=== PATIENT | male | born 1965 | race Caucasian/White ===

== ENCOUNTER 2024-09-10 00:51 | Inpatient (IN) | payer BC, OTHER ==
[2024-09-10] VITALS (21 sets, daily range): BP systolic 113–171; BP diastolic 77–105; PULSE 49–110; RESP 12–20; TEMP 97.6–98.7; O2SAT 93–100
[~2024-09-10] VITALS: Ht 180.3 cm; Wt 87.6 kg
[~2024-09-10 00:51] MED LIST: ALBU108A5 INH; AZIT-43 PO; BUDE1AER4 IN; IPRA0.00 NEB
[2024-09-10 01:33] LABS: Alanine Aminotransferase 33 U/L (7-40); Albumin 4.5 g/dL (3.2-4.8); Alkaline Phosphatase 81 U/L (46-116); Anion Gap 7 (5-15); BUN/Creatinine Ratio 14.2 (10.0-20.0); Bilirubin, Total 0.9 mg/dL (0.2-1.0); Blood Urea Nitrogen 17 mg/dL (9-23); Calcium 9.5 mg/dL (8.7-10.4); Carbon Dioxide 28 mmol/L (20-31); Chloride 106 mmol/L (98-107); Sodium 141 mmol/L (136-145)
[2024-09-10 01:34] LABS: Total Protein 6.6 g/dL (5.7-8.2)
[2024-09-10 01:38] LABS: Aspartate Aminotransferase 188 U/L (13-40); Glucose 113 mg/dL (74-106)
--- NOTE | 2024-09-10 01:39 | ED.PDOC ---
HPI Comments 59-year-old male who came to ER via EMS for chest pains. Per EMS, patient comes from [facility], where in the patient checked in than initial complaint of abdominal pain with nausea and vomiting. Abdominal pain will radiate to his chest area, causing him chest pains and shortness of breath. Diagnostics done at [facility] showed progressively increasing troponin levels of the patient to be brought to this ER for further evaluation and management. Patient's troponin increased from 0.07 2.6. EKG shows sinus bradycardia with PVCs. Chest x-ray was negative. He did have an elevated white blood cell count of 14.8. He was saturating 96% at room air. Case was discussed with Edgar Lagos at [facility]. Patient received aspirin, morphine, was started on a heparin and heparin drip prior to arrival. Chief Complaint: Chest Pain Time Seen by MD: 01:34 Reviewed Notes: Nurses Notes Allergies: Coded Allergies: NO KNOWN ALLERGIES (Unverified , 09/10/24) Information Source: Patient Mode of Arrival: Ambulatory Severity: Moderate Timing: Days Duration: Intermittent Prehospital treatment: None Location: Substernal Radiation: Abdomen Quality: Pressure Onset: At Rest, With Light Exertion Cardiac Risk Factors: HTN, Diabetes Vital Signs Vital Signs Date Time Temp Pulse Resp B/P (MAP) Pulse Ox O2 Delivery O2 Flow Rate FiO2 09/10/24 01:39 59 09/10/24 00:51 98.1 18 152/90 (110) 96 Physical Exam General: Awake, alert and oriented. No acute distress. Skin: Skin in warm, dry and intact. Appropriate color for ethnicity. Nailbeds pink with no cyanosis. HEENT: The head is normocephalic and atraumatic. Conjunctivae are clear without exudates or hemorrhage. Sclera is non-icteric. EOM are intact. No signs of nystagmus. Eyelids are normal in appearance without swelling or lesions. Oral mucosa is pink and moist Neck: The neck is supple with normal range of motion. No JVD. Cardiac: Heart rate and rhythm are normal. No murmurs, gallops, or rubs are auscultated. Respiratory: No signs of respiratory distress. Lung sounds are clear in all lob es bilaterally without rales, ronchi, or wheezes. Abdominal: Abdomen is soft, non-tender without distention. Bowel sounds are p resent and normoactive in all four quadrants. Extremities: Upper and lower extremities are atraumatic in appearance without de formity or edema. Neurological: The patient is awake, alert and oriented to person, place, and time with normal speech. Speech is clear. There is no facial asymmetry. Psychiatric: Appropriate mood and affect. Good judgement and insight. No visual or auditory hallucinations. Review of Systems: REVIEW OF SYSTEMS: No fever, no chills, or fatigue HEENT: No sore throat, no earache, no congestion, no neck pain. Cardiac: Positive chest pain. No palpitations. Lungs: No shortness of breath, no cough. GI: Positive nausea, positive vomiting, no diarrhea, no constipation, no abdominal pain : No dysuria, frequency, or urgency. No hematuria. Musculoskeletal: No joint pain , no joint swelling, no extremity edema. Skin: No rash, no itching. Neuro: No headache, no dizziness, no weakness Past Medical History PAST MEDICAL HISTORY: COPD Surgical History (Other): Colon surgery Family History Family History: Reviewed,noncontributory to illness Social History Smoker: Non-Smoker Alcohol: Denies ETOH Use Drugs: Denies Drug Use Lives In: Home EKG EKG : Pulse Rate (adult): 59 Cardiac Rhythm: NSR Comments no STEMI Was a procedure done? Was a procedure done?: No CP Differential Dx Differential Diagnosis: Angina, Anxiety / Panic Attack Differential Diagnosis: Angina, Aortic dissection, Chest Wall Pain, Costochondritis, Esophageal reflux/spasm, Gastritis, Myocardial Infarction, Pericarditis, Pneumonia, Other X-Ray, Labs, Meds, VS Vital Signs Date Time Temp Pulse Resp B/P (MAP) Pulse Ox O2 Delivery O2 Flow Rate FiO2 09/10/24 01:39 59 09/10/24 00:51 59 09/10/24 00:51 98.1 60 18 152/90 (110) 96 Lab Test 09/10/24 01:45 09/10/24 01:04 Range/Units Urine Color Light-yellow Yellow Urine Clarity Clear Clear Urine pH 7.0 5.0-9.0 Urine Specific [place] 1.009 1.001-1.035 Urine Protein Negative Negative Urine Ketones Trace Negative Urine Blood Trace H Negative /uL Urine Nitrite Negative Negative Urine Bilirubin Negative Negative Urine Urobilinogen Normal Negative mg/dL Urine Leukocyte Esterase Negative Negative /uL Urine RBC 1 0 - 3 /hpf Urine WBC <1 0 - 3 /hpf Urine Squamous Epithelial Cells None seen <5 /hpf Urine Bacteria None seen None Seen /hpf Urine Glucose Normal Normal mg/dL Prothrombin Time 10.9 9.3-11.8 sec Prothrombin Time INR 1.01 0.9-1.15 Sodium Level 141 136-145 mmol/L Potassium Level 4.0 3.5-5.1 mmol/L Chloride Level 106 98-107 mmol/L Carbon Dioxide Level 28 20-31 mmol/L Anion Gap 7 5-15 Blood Urea Nitrogen 17 9-23 mg/dL Creatinine 1.20 0.700-1.30 mg/dL Glomerular Filtration Rate Calc 70 >90 mL/min BUN/Creatinine Ratio 14.2 10.0-20.0 Serum Glucose 113 H 74-106 mg/dL Calcium Level 9.5 8.7-10.4 mg/dL Total Bilirubin 0.9 0.2-1.0 mg/dL Aspartate Amino Transferase (AST) 188 H 13-40 U/L Alanine Aminotransferase (ALT) 33 7-40 U/L Alkaline Phosphatase 81 46-116 U/L Troponin I High Sensitivity > 37190 *H </=54 ng/L Total Protein 6.6 5.7-8.2 g/dL Albumin 4.5 3.2-4.8 g/dL Time of 1ST Reevaluation: 01:30 Reevaluation 1ST: Unchanged Patient Education/Counseling: Diagnosis, Treatment Family Education/Counseling: No Family Present Departure 1 Departure Time of Disposition: 03:36 Impression: Primary Impression: NSTEMI (non-ST elevated myocardial infarction) Additional Impression: Chest pain Disposition: ADMITTED INPATIENT Condition: Stable Comments Extensive evaluation was performed in attempt to identify or rule out: (See differential diagnosis section) The following tests were ordered, and results were reviewed by me: (See diagnostic results section) The following test were independently interpreted by me: EKG, chest x-ray-no acute disease I reviewed and agreed with the following test results read by other providers: Chest x-ray I reviewed the following notes from the pt's past medical encounters: Hospitalization at [facility] Additional information was gathered from interviewing the following independent historians: EMS, PA at [facility] caring for patient Discussion of management or test interpretation with external physician/other qualified health skin care specialist: N/APA at [facility] caring for patient Addressed an acute or chronic illness that poses a threat to life or bodily function: Acute coronary syndrome Decision regarding hospitalization or escalation of hospital level of care: Risk and benefits of admission for further treatment of patient's condition was considered. Due to patient's current clinical condition, high risk of decline and poor outcome if discharged and need for further inpatient management and monitoring, patient will be admitted to the hospital. Critical Care Note Critical Care Time?: Yes (35 min-critical care time only) Critical care comment: Total critical care time: Approximately 35 minutes Due to a high probability of clinically significant, life threatening deterioration, the patient required my highest level of preparedness to intervene emergently and I personally spent this critical care time directly and personally managing the patient. This critical care time included obtaining a history; examining the patient; pulse oximetry; ordering and review of studies; arranging urgent treatment with development of a management plan; evaluation of patient's response to treatment; frequent reassessment; and, discussions with other providers. This critical care time was performed to assess and manage the high probability of imminent, life-threatening deterioration that could result in multi-organ failure. It was exclusive of separately billable procedures and treating other patients and teaching time. Please see my other sections and the rest of the note for further information on patient assessment and treatment. Stability Stability form required: No Heart Score Heart Score: Heart Score Response (Comments) Value History Moderate Suspicious 1 EKG Repolarization Disturb 1 Age 45-64 1 Risk Factors 1 or 2 risk factors 1 Troponin >3 x's Normal limit 2 Total 6 I personally scribed for ROGERS CARPIO MD ([email or web address]) on 09/10/24 at 01:39. Electronically submitted by Mahesh Humphreys ([email or web address]). I personally scribed for ROGERS CARPIO MD ([email or web address]) on 09/10/24 at 02:18. Electronically submitted by Mahesh Humphreys ([email or web address]). ROGERS CARPIO MD Sep 10, 2024 01:39
--- NOTE | 2024-09-10 01:41 | DVH ---
EXAM: XY CHEST XRAY 1 VIEW CLINICAL HISTORY: NSTEMI TECHNIQUE: Single AP view of the chest WID: COMPARISON: None FINDINGS: Lines and tubes: None Chest: The heart size and pulmonary vasculature is within normal limits. No pleural effusion, pneumothorax, or consolidation. Linear left basilar atelectasis or scarring. The osseous structures are grossly intact. IMPRESSION: No acute cardiopulmonary abnormality. Linear left basilar atelectasis or scarring
[2024-09-10 01:43] LABS: INR 1.01 (0.9-1.15); Prothrombin Time 10.9 sec (9.3-11.8)
[2024-09-10 02:18] LABS: Urine Bacteria None Seen /hpf (None Seen)
[2024-09-10 02:24] LABS: Urine Blood TRACE /uL (Negative); Urine Clarity Clear (Clear); Urine Color Light-Yellow (Yellow); Urine Protein, UAD Negative (Negative); Urine Specific Gravity 1.009 (1.001-1.035); Urine Urobilinogen Normal (Negative); Urine WBC <1 /hpf (0 - 3)
[2024-09-10] MEDS ORDERED: MORPHINE SULFATE INJ 2 MG/ml SYRG IV PRN (02:30)
[2024-09-10] MEDS ORDERED: NITROGLYCERIN 0.4 MG SL TAB SL PRN (02:30)
[2024-09-10] MEDS: HEPARIN DRIP/D5W 100UNITS/ML 250 ML IV SCH (03:00)
[2024-09-10] MEDS: ATORVASTATIN 20 MG TAB PO ONE (03:10)
[2024-09-10] MEDS: ASPirin 325 MG TAB PO ONE (03:10)
[2024-09-10] MEDS: HEPARIN SODIUM (PORCINE) 5000 UNITS/ML 1ML VIAL IV ONE (03:13)
[2024-09-10] MEDS: SODIUM CHLORIDE 0.9% 1,000 ML IV SCH (03:26)
[2024-09-10 03:52] LABS: Basophils # (auto) 0.1 10 ^3/uL (0-0.2); Basophils % (auto) 0.7 % (0.0-2.0); Eosinophils # (auto) 0 10 ^3/uL (0-0.8); Eosinophils % (auto) 0.3 % (0.0-7.0); Hematocrit 48.9 % (41.0-53.0); Hemoglobin 16.9 g/dL (13.5-17.5); Lymphocytes # (auto) 1.9 10 ^3/uL (0.4-5.4); Lymphocytes % (auto) 16.8 % (10.0-50.0); Mean Corpuscular Hemoglobin 33.3 pg (28.0-32.0); Mean Corpuscular Hgb Conc. 34.6 g/dL (32.0-36.0); Mean Corpuscular Volume 96.1 fL (80.0-100.0); Monocytes # (auto) 1.5 10 ^3/uL (0-1.3); Monocytes % (auto) 12.7 % (0.0-12.0); Neutrophils % (auto) 69.5 % (37.0-80.0); Platelet Count (auto) 263 10^3/uL (140-450); Red Blood Cells 5.09 10^6/uL (4.5-5.90); Red Cell Distribution Width 12.4 % (11.8-14.3); White Blood Cell 11.5 10^3/uL (4.4-10.8)
[2024-09-10 04:05] LABS: INR 1.04 (0.9-1.15)
--- NOTE | 2024-09-10 04:07 | DVHHPRES ---
History of Present Illness Resident Creating Document: KATIA JARA RESIDENT Reason for Visit: chest pain History of Present Illness 59-year-old male patient with past medical history of COPD, significant smoking history (1.5 packs per day for 40 years, quit 2 years ago), and prior colon resection for 2 masses, presented with chest pain localized in the middle of the chest pressure-like, constant, sometimes radiating to the right armpit and associated with shortness breaths who was transferred to the emergency department from [facility] for further evaluation of chest pain. The patient's symptoms began on Friday with severe nausea and vomiting, prompting evaluation at [facility]. At that time the patient was discharged home . Yesterday the patient developed chest pain described as pressure-like, initially localized to the chest but sometimes radiating to the right armpit, along with worsening shortness of breath. He returned to [facility] where a troponin trending was elevated, for which the patient was transferred to [facility] where we found the [place] troponins [place] more [place] [id number]. He denies prior history of coronary artery disease, myocardial infarction or prior cardiac procedures but attributes prior episodes of chest pain and dyspnea to his COPD. The patient's chest pain has improved since transfer, and he currently reports mild pressure-like discomfort localized to the center of the chest without radiation. He denies palpitation, lightheadedness, dizziness or syncope. His nausea and vomiting have resolved. The patient reports smoking marijuana occasionally but denies alcohol or other drug use. 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 His surgical history includes colon resection for 2 masses and hernia repair with a visible abdominal scar. EKG showed deep Q waves and age undetermined infarction in the posteroinferior leads, this morphology likely related with an ST progression as this event happened >24 hrs On arrival to [facility], other than the troponin elevation the AST was found to be elevated at 188. The patient is currently hemodynamically stable with normal vital signs and no signs of acute distress. Given the significant troponin elevation and EKG presentation Cardiology was consulted. The patient was started on medical therapy with aspirin 325 mg p.o, atorvastatin 80 mg and heparin drip. Patient will keep NPO today Past Medical History OPD, significant smoking history (1.5 packs per day for 40 years, quit 2 years ago), and prior colon resection for 2 masses Past Surgical History: Hernia Repair, Other Family History: None ALCOHOL: none Lives: with Family Domestic Violence: Neg Review of Systems Review of Systems Constitutional: No: Fever, Chills, Sweats, Weakness, Malaise, Other Eyes: No: Pain, Vision change, Conjunctivae inflammation, Eyelid inflammation, Other, Redness ENT: No: Ear pain, Ear discharge, Nose pain, Nose discharge, Nose congestion, Mouth pain, Mouth swelling, Throat pain, Throat swelling, Other Respiratory: No Wheezing, Hemoptysis, Pleuritic Pain, Sputum, Wheezing, Other Cardiovascular: mild Chest Pain no: Palpitations, Orthopnea, Paroxysmal Noc. Dyspnea, Edema, Lt Headedness, Other Gastrointestinal: No: Nausea, Vomiting, Abdominal Pain, Diarrhea, Constipation, Melena, Hematochezia, Other Musculoskeletal: No: other, neck pain, shoulder pain, arm pain, back pain, hand pain, leg pain, foot pain Neurological:; No: Weakness, Numbness, Incoordination, Change in speech, Confusion, Seizures Allergies: Coded Allergies: Penicillins (Verified Allergy, Unknown, 09/10/24) Medications Current Medications Medications Dose Ordered Sig/Severo Route Start Time Stop Time Status Last Admin Dose Admin Sodium Chloride 1,000 ml @ 60 mls/hr [id number] IV 09/10/24 02:30 09/10/24 03:26 60 MLS/HR Ondansetron HCl 4 mg Q4HP PRN IV 09/10/24 02:30 Acetaminophen 650 mg Q6HP PRN PO 09/10/24 02:30 Morphine Sulfate 2 mg Q4HPRN PRN IV 09/10/24 02:30 Nitroglycerin 0.4 mg Q5MINP PRN SL 09/10/24 02:30 Morphine Sulfate 2 mg Q30M PRN IV 09/10/24 02:30 Heparin Sodium/ Dextrose 250 ml @ 10 mls/hr Q24H IV 09/10/24 02:30 Aspirin 81 mg DAILY PO 09/10/24 10:00 Atorvastatin Calcium 40 mg DAILY PO 09/10/24 22:00 Pantoprazole Sodium 40 mg DAILY IV 09/10/24 10:00 Exam Vital Signs Vital Signs Date Time Temp Pulse Resp B/P (MAP) Pulse Ox O2 Delivery O2 Flow Rate FiO2 09/10/24 02:42 63 09/10/24 00:51 98.1 18 152/90 (110) 96 Exam Examination General Appearance: Alert, Oriented X3, Cooperative, No acute distress Respiratory: Slight wheezing, no crackles, Normal air movement Cardiovascular: Regular rate, Normal S1, Normal S2 Abdominal: Normal bowel sounds Extremities: No cyanosis, No edema, Normal pulses, No tenderness/swelling Skin: No rashes, No breakdown Neuro: Normal gait, Normal speech, Strength at 5/5 X4 ext, Normal tone, Sensation intact, Cranial nerves 3-12 NL, Reflexes 2+ Psych/Mental Status: Mental status NL, Mood NL Labs/Xrays Labs Test 09/10/24 03:27 09/10/24 02:35 09/10/24 01:45 09/10/24 01:04 Range/Units White Blood Count 11.5 H 4.4-10.8 10^3/uL Red Blood Count 5.09 4.5-5.90 10^6/uL Hemoglobin 16.9 13.5-17.5 g/dL Hematocrit 48.9 41.0-53.0 % Mean Corpuscular Volume 96.1 80.0-100.0 fL Mean Corpuscular Hemoglobin 33.3 H 28.0-32.0 pg Mean Corpuscular Hemoglobin Concent 34.6 32.0-36.0 g/dL Red Cell Distribution Width 12.4 11.8-14.3 % Platelet Count 263 140-450 10^3/uL Mean Platelet Volume 9.1 6.9-10.8 fL Neutrophils (%) (Auto) 69.5 37.0-80.0 % Lymphocytes (%) (Auto) 16.8 10.0-50.0 % Monocytes (%) (Auto) 12.7 H 0.0-12.0 % Eosinophils (%) (Auto) 0.3 0.0-7.0 % Basophils (%) (Auto) 0.7 0.0-2.0 % Neutrophils # (Auto) 8.0 1.6-8.6 10 ^3/uL Lymphocytes # (Auto) 1.9 0.4-5.4 10 ^3/uL Monocytes # (Auto) 1.5 H 0-1.3 10 ^3/uL Eosinophils # (Auto) 0 0-0.8 10 ^3/uL Basophils # (Auto) 0.1 0-0.2 10 ^3/uL Nucleated Red Blood Cells 0.0 % Urine Color Light-yellow Yellow Urine Clarity Clear Clear Urine pH 7.0 5.0-9.0 Urine Specific [place] 1.009 1.001-1.035 Urine Protein Negative Negative Urine Ketones Trace Negative Urine Blood Trace H Negative /uL Urine Nitrite Negative Negative Urine Bilirubin Negative Negative Urine Urobilinogen Normal Negative mg/dL Urine Leukocyte Esterase Negative Negative /uL Urine RBC 1 0 - 3 /hpf Urine WBC <1 0 - 3 /hpf Urine Squamous Epithelial Cells None seen <5 /hpf Urine Bacteria None seen None Seen /hpf Urine Glucose Normal Normal mg/dL Troponin I High Sensitivity > 37202 *H </=54 ng/L Assessment/Plan Assessment/Plan #Acute evolving myocardial infarction with Q waves -[place] [address], deep Q waves -Consider cardiac catheterization tomorrow morning -NPO -PT PTT -Aspirin 325 -Heparin drip -Atorvastatin 80 mg -Cardiology consult #Acute hypoxemic respiratory failure due to COPD exacerbation -Oxygen supplementation -medneb inh #Ischemic hepatitis? -Elevated AST 188 suggest hepatic injury, likely secondary to hypoperfusion related to acute ischemic events. #History of nicotine dependency 1-1/2 pack a day for 40 years, quit 2 years ago #History of post colon resection status #Drug abuse, marijuana use -smoking cessation counseling was provided # uncontrolled hypertension -monitor blood pressure Case discussed with Dr. Amezcua Goals of care discussed with the patient for 36 minutes Code status: Full code Plan discussed with: Patient My Orders Orders - KATIA JARA RESIDENT Procedure Category Date Status Time Admit ADMIT 09/10/24 Transmitted 02:19 Allergies SARABJIT 09/10/24 In Process 02:19 Code Status CODE 09/10/24 Transmitted 02:19 Sodium Chloride 0.9% PHA 09/10/24 In Process 02:30 Ondansetron Hcl PHA 09/10/24 In Process (Zofran) 02:30 Complete Blood Count LAB 09/10/24 In Process 04:00 Comprehensive LAB 09/10/24 In Process Metabolic Panel 04:00 Npo (Nothing By DIET 09/10/24 Transmitted Mouth) Diet Breakfast Echo 2d Mode Cardiac US 09/10/24 Logged DOP 02:19 Acetaminophen Tablet PHA 09/10/24 In Process (Tylenol Tablet) 02:30 Morphine Sulfate PHA 09/10/24 In Process Injection 02:30 Nitroglycerin PHA 09/10/24 In Process Sublingual (Ntrostat 02:30 Morphine Sulfate PHA 09/10/24 In Process Injection 02:30 Oxygen By Nasal RT 09/10/24 Transmitted Cannula 02:19 Stat Ekg For Chest [facility] 09/10/24 In Process Pain 02:19 Notify Md Of Changes [facility] 09/10/24 In Process From Base 02:19 Bronc Buster For [facility] 09/10/24 In Process 24 Hours 02:19 Emergency Dysrhythmia [facility] 09/10/24 In Process Protocol 02:19 Rhythm Strips Once [facility] 09/10/24 In Process Every Shift 02:19 Date of Service: Sep 10, 2024 Billing Provider: JASKARAN AMEZCUA MD Common Visit Codes: [id number] INP/OBS CARE (HIGH) KATIA JARA RESIDENT Sep 10, 2024 04:06 JASKARAN AMEZCUA MD Sep 10, 2024 19:28
[2024-09-10 04:10] LABS: Opiate Scree,Urine Neg (NEGATIVE)
[2024-09-10 04:12] LABS: Albumin 4.8 g/dL (3.2-4.8); Alkaline Phosphatase 86 U/L (46-116); Anion Gap 9 (5-15); BUN/Creatinine Ratio 12.8 (10.0-20.0); Blood Urea Nitrogen 16 mg/dL (9-23); Calcium 9.9 mg/dL (8.7-10.4); Carbon Dioxide 28 mmol/L (20-31); Chloride 105 mmol/L (98-107); Glucose 100 mg/dL (74-106); Potassium 4.1 mmol/L (3.5-5.1); Sodium 142 mmol/L (136-145)
[2024-09-10 04:14] LABS: Amphetamine Screen, Urine Neg (NEGATIVE); Barbiturate Scree,Urine Neg (NEGATIVE); Benzodiazephine Screen, Urine Neg (NEGATIVE); Cannabinoid Screen, Urine Pos (NEGATIVE); Cocaine Screen, Urine Neg (NEGATIVE); Phencyclidine Screen, Urine Neg (NEGATIVE)
[2024-09-10 04:23] LABS: Alanine Aminotransferase 44 U/L (7-40); Aspartate Aminotransferase 295 U/L (13-40)
[2024-09-10] MEDS: IPRATROPIUM BROM 0.5 MG/2.5ML INH SOL NEB SCH (06:01)
[2024-09-10] MEDS: ALBUTEROL SULF 2.5 MG/0.5ML(0.5%) NEB SOLN NEB PRN (06:02)
--- NOTE | 2024-09-10 06:50 | ECG ---
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
--- NOTE | 2024-09-10 07:53 | DVHINCON2 ---
Date Seen: Sep 10, 2024 Referring Physician MD Andrea Reason for Consultation NSTEMI History of Present Illness This is a 59-year-old man who presented to the emergency room from [facility] for higher level of care given trending troponin levels. The patient reports he presented to the aforementioned facility with complaints of epigastric pain and subsequent chest pain described as substernal, pressure- like, radiating to the left upper extremity, and associated with nausea and vomiting for two days. He underwent an initial 12 lead electrocardiogram revealing a sinus rhythm with ST segment depression to inferior leads with associated Q-waves as well as reciprocal changes to lateral wall. Low sensitivity troponin levels peaked at 2.09 ng/mL. At that time, he was medicated with ASA 324 mg p.o. x1, loaded on heparin 5,000 units IV, and placed on a heparin drip. Significant medical history includes hypertension, COPD, asthma, benign prostatic hyperplasia, nephrolithiasis, anxiety, heavy cannabinoid use, and a smoke history of 60 pack-years. Past Medical History Past medical history reviewed. No other significant than mentioned above. Past Surgical History Hernia repair Left colectomy Open reduction of pelvic bone with internal fixation Family History Family history reviewed. Paternal uncle from a massive myocardial infarction in his 40s y.o. Social History Denies the use of alcohol or tobacco use. Admits to heavy cannabinoid use. Quit tobacco use 1.5 years ago. Tobacco history equals 60 pack-years. Allergies: Coded Allergies: NO KNOWN ALLERGIES (Unverified , 09/10/24) Home Meds Home medications reviewed. Current Medications Current Medications Medications (Trade) Dose Ordered Sig/Severo Route PRN Reason Start Time Stop Time Status Last Admin Sodium Chloride 1,000 ml @ 60 mls/hr [id number] IV 09/10/24 02:30 09/10/24 03:26 Ondansetron HCl (Zofran) 4 mg Q4HP PRN IV NAUSEA / VOMITING 09/10/24 02:30 Acetaminophen (Tylenol Tablet) 650 mg Q6HP PRN PO PAIN SCALE 1-3 OR TEMP>100.4 09/10/24 02:30 Morphine Sulfate 2 mg Q4HPRN PRN IV SEVERE PAIN (7-10 PAIN SCALE) 09/10/24 02:30 Nitroglycerin (Ntrostat Sublingual) 0.4 mg Q5MINP PRN SL FOR CHEST PAIN 09/10/24 02:30 Morphine Sulfate 2 mg Q30M PRN IV FOR CHEST PAIN 09/10/24 02:30 Heparin Sodium/ Dextrose 250 ml @ 10 mls/hr Q24H IV 09/10/24 02:30 09/10/24 03:00 Aspirin 81 mg DAILY PO 09/10/24 10:00 Atorvastatin Calcium (Lipitor) 40 mg DAILY PO 09/10/24 22:00 Pantoprazole Sodium (Protonix) 40 mg DAILY IV 09/10/24 10:00 Albuterol (Ventolin Medneb) 2.5 mg Q6HWA PRN NEB SHORTNESS OF BREATH 09/10/24 05:15 09/10/24 06:02 Ipratropium [place] (Atrovent Medneb) 0.5 mg Q6HWA NEB 09/10/24 06:00 09/10/24 06:01 Review of Systems Constitutional: No symptom reported Ears, Nose, & Throat: No symptom reported Eyes: No symptom reported Neurological: No symptoms reported Pulmonary/Respiratory: No symptom reported Cardiovascular: Chest pain Gastrointestinal: Epigastric pain, N/V Genitourinary: No symptom reported Musculoskeletal: No symptom reported Skin: No symptom reported Psychiatric: No symptom reported Endocrine: No symptom reported Hemotologic/Lymphatic: No symptom reported Vital Signs Vital Signs Date Time Temp Pulse Resp B/P (MAP) Pulse Ox O2 Delivery O2 Flow Rate FiO2 09/10/24 07:43 65 09/10/24 06:50 12 98 Nasal Cannula* 2 28 09/10/24 06:13 98.1 152/90 98.1 Physical Exam General Appearance: Cooperative. Well developed. Well nourished. In no acute distress Head Exam: Normal inspection Neck Exam: Normal inspection. Non-tender. Normal alignment Pulmonary/Respiratory: Chest non-tender. Clear bilateral breath sounds Cardiovascular/Chest: Regular rate and rhythm. S1, S2. Sinus rhythm with evolved inferior wall NJ. No murmurs. No JVD. Peripheral Pulses: 2+ Radial (R). 2+ Radial (L). 2+ Pedal (R). 2+ Pedal (L) Abdominal Exam: Normal bowel sounds. Soft. Nontender. No hepatospenomegaly. No masses Ankle Exam: Negative ankle edema Lower extremities: Negative lower extremity edema Neuro/Mental Status: A&O x4. Coherent Thoughts/Psych: Normal thought pattern. Appropriate mood and affect. Good judgement and insight Appearance: In no acute distress Skin Exam: Normal inspection. Normal color. Warm. Dry Labs/Diagnostic Data Labs Test 09/10/24 03:27 09/10/24 02:35 09/10/24 01:45 Range/Units White Blood Count 11.5 H 4.4-10.8 10^3/uL Red Blood Count 5.09 4.5-5.90 10^6/uL Hemoglobin 16.9 13.5-17.5 g/dL Hematocrit 48.9 41.0-53.0 % Mean Corpuscular Volume 96.1 80.0-100.0 fL Mean Corpuscular Hemoglobin 33.3 H 28.0-32.0 pg Mean Corpuscular Hemoglobin Concent 34.6 32.0-36.0 g/dL Red Cell Distribution Width 12.4 11.8-14.3 % Platelet Count 263 140-450 10^3/uL Mean Platelet Volume 9.1 6.9-10.8 fL Neutrophils (%) (Auto) 69.5 37.0-80.0 % Lymphocytes (%) (Auto) 16.8 10.0-50.0 % Monocytes (%) (Auto) 12.7 H 0.0-12.0 % Eosinophils (%) (Auto) 0.3 0.0-7.0 % Basophils (%) (Auto) 0.7 0.0-2.0 % Neutrophils # (Auto) 8.0 1.6-8.6 10 ^3/uL Lymphocytes # (Auto) 1.9 0.4-5.4 10 ^3/uL Monocytes # (Auto) 1.5 H 0-1.3 10 ^3/uL Eosinophils # (Auto) 0 0-0.8 10 ^3/uL Basophils # (Auto) 0.1 0-0.2 10 ^3/uL Nucleated Red Blood Cells 0.0 % Prothrombin Time 11.0 9.3-11.8 sec Prothrombin Time INR 1.04 0.9-1.15 Activated Partial Thromboplast Time 26.0 24.5-34.5 SEC D-Dimer, Quantitative 0.32 0.0-0.49 mg/L FEU Sodium Level 142 136-145 mmol/L Potassium Level 4.1 3.5-5.1 mmol/L Chloride Level 105 98-107 mmol/L Carbon Dioxide Level 28 20-31 mmol/L Anion Gap 9 5-15 Blood Urea Nitrogen 16 9-23 mg/dL Creatinine 1.25 0.700-1.30 mg/dL Glomerular Filtration Rate Calc 66 >90 mL/min BUN/Creatinine Ratio 12.8 10.0-20.0 Serum Glucose 100 74-106 mg/dL Calcium Level 9.9 8.7-10.4 mg/dL Total Bilirubin 1.0 0.2-1.0 mg/dL Aspartate Amino Transferase (AST) 295 H 13-40 U/L Alanine Aminotransferase (ALT) 44 H 7-40 U/L Alkaline Phosphatase 86 46-116 U/L B-Type Natriuretic Peptide 290.40 0-100 pg/mL Total Protein 7.0 5.7-8.2 g/dL Albumin 4.8 3.2-4.8 g/dL Thyroid Stimulating Hormone (TSH) 0.77 0.55-4.78 uIU/mL Urine Opiates Screen Neg NEGATIVE Urine Fentanyl Screen Neg NEGATIVE Urine Barbiturates Screen Neg NEGATIVE Urine Phencyclidine Screen Neg NEGATIVE Urine Amphetamines Screen Neg NEGATIVE Urine Benzodiazepines Screen Neg NEGATIVE Urine Cocaine Screen Neg NEGATIVE Urine Cannabinoids Screen Pos NEGATIVE Urine Color Light-yellow Yellow Urine Clarity Clear Clear Urine pH 7.0 5.0-9.0 Urine Specific [place] 1.009 1.001-1.035 Urine Protein Negative Negative Urine Ketones Trace Negative Urine Blood Trace H Negative /uL Urine Nitrite Negative Negative Urine Bilirubin Negative Negative Urine Urobilinogen Normal Negative mg/dL Urine Leukocyte Esterase Negative Negative /uL Urine RBC 1 0 - 3 /hpf Urine WBC <1 0 - 3 /hpf Urine Squamous Epithelial Cells None seen <5 /hpf Urine Bacteria None seen None Seen /hpf Urine Glucose Normal Normal mg/dL Assessment Evolved inferior wall myocardial infarction Pertinent family history for CV disease Hypertension Dyslipidemia, newly diagnosed COPD with hx of tobacco use and 60 pack-years Cannabinoid use Plan/Recommendation (Dr. Jeffries) The patient with an evolved inferior wall myocardial infarction has been scheduled for an urgent/emergent cardiac catheterization and coronary angiogram at fist available. All risks and benefits of the procedure were discussed in detail and agrees to proceed with intervention. All questions answered. In the meantime, continue with a transthoracic echocardiogram to rule out structural heart disease. Continue heparin drip per pharmacy protocol, single antiplatelet therapy, and lipid lowering agent. Continue BP control with BB and ARB, up- titrate as necessary. Thank you for allowing us to participate in this patient's care. Please call if you have any questions or concerns. Critical care time 50 min. This medical document was created using an electronic medical record system with voice recognition software and computerized dictation system. Although this document has been carefully reviewed, there might still be some phonetic and typographical errors. Occasional wrong-word or ``sound-alike substitutions may have occurred due to the inherent limitations of voice recognition software. These areas are purely typographical due to imperfections of the software programs and do not reflect any compromise in the patient's medical care. Please read the chart carefully and recognize, using context, where these substitutions have occurred. Plan discussed with: Patient, Other Date of Service: Sep 10, 2024 Billing Provider: KEITH JEFFRIES MD Cardiology Common Codes: [id number]-[id number] CARE 30-74 MIN YANIRA TURK [facility] Sep 10, 2024 07:53
[2024-09-10] MEDS: IODIXANOL 320MG/ML 100ML BTL IV ONE (08:04)
[2024-09-10 08:15] LABS: Magnesium 2.1 mg/dL (1.6-2.6)
[2024-09-10] MEDS: ANGIOMAX 250 MG VIAL IV ONE (08:37)
[2024-09-10] MEDS: HEPARIN SODIUM (PORCINE) 5000 UNITS/ML 1ML VIAL ONE ×2 (08:37→09:18)
[2024-09-10] MEDS: MIDAZOLAM HCL 2MG/2ML 2ml VIAL (1mg/ml) ONE (08:38)
[2024-09-10] MEDS: VERAPAMIL 2.5MG/ML INJ 2ML VIAL IV ONE (08:38)
[2024-09-10] MEDS: SODIUM CHL 0.9% 0 ML ONE (08:38)
[2024-09-10] MEDS: LIDOCAINE 2%HCL (LOCAL ANESTH.) INJ 20ML MDV ONE (08:38)
[2024-09-10] MEDS: fentaNYL CITRATE 100 MCG/2 ML VL ONE (08:38)
[2024-09-10 09:01] LABS: Erythrocyte Sedimentation Rate 1 mm/hr (0-20)
--- NOTE | 2024-09-10 09:51 | DVHOP2 ---
Operative Report -Cardiology Report Details Date: 09/10/24 Preop Diagnosis: Non ST-elevation myocardial infarction. Postop Diagnosis: Non ST-elevation myocardial infarction secondary to subtotal occlusion of 1st obtuse marginal tight stenosis and 99%. Lesion was fixed with single drug-eluting stent it was3 x 18 [place] MELISSA with excellent final result. Surgeon: Moraima Camacho MD Anesthesiologist: Conscious sedation using25 mcg of fentanyl as well as a mg IV midazolam. These were given under the direct supervision of the primary principal embedded software engineer myself in the presence of the attending nurses. Patient was monitored for total of35 minutes without obvious complication. Anesthesia: Local Consent: The patient was informed of the risks and benefits of the procedure. These include but are not limited to complications of anesthesia, postoperative infection, incomplete relief of symptoms, recurrence of symptoms, damage to blood vessels, nerves and tendons, deep venous thrombosis, pulmonary embolism and possible need for repeat surgery in the future. Indications for Surgery: This is a 59-year-old man who presented to the emergency room from [facility] for higher level of care given trending troponin levels. The patient reports he presented to the aforementioned facility with complaints of epigastric pain and subsequent chest pain described as substernal, pressure- like, radiating to the left upper extremity, and associated with nausea and vomiting for two days. He underwent an initial 12 lead electrocardiogram revealing a sinus rhythm with ST segment depression to inferior leads with associated Q-waves as well as reciprocal changes to lateral wall. Low sensitivity troponin levels peaked at 2.09 ng/mL. At that time, he was medicated with ASA 324 mg p.o. x1, loaded on heparin 5,000 units IV, and placed on a heparin drip. Significant medical history includes hypertension, COPD, asthma, benign prostatic hyperplasia, nephrolithiasis, anxiety, heavy cannabinoid use, and a smoke history of 60 pack Name of Procedure Performed 1. Left heart catheterization with left ventricular end-diastolic pressure measurement. 2. Selective right and left coronary angiography utilizing right transradial approach. 3. Primary PCI to culprit mid obtuse marginal branch stenosis and 99%. Treated with single drug-eluting stent 3 x 20 [place] MELISSA. 4. Conscious sedation using25 mcg of fentanyl as well as a mg IV midazolam. Procedure Details Procedure Details: Procedure note and vascular access: After informed consent was obtained, risks, benefits, complications, and alternatives were discussed in detail with the patient who agrees to have the procedure done. At the beginning of the procedure, the right wrist in the right coronary artery were prepped and draped in the regular sterile fashion. Patient was brought into the chemical lab supervisor where he received conscious sedation 25 mcg of fentanyl as well as a mg of midazolam. He then received a total of2 cc of 1% xylocaine locally to the right wrist area before a six Danish sheath was placed using modified Seldinger technique. A cocktail of 2.5 mg of verapamil as well as 100 mcg of nitroglycerin were given intra-arterial to prevent vasospasm. Given that the patient was on IV heparin we continue IV heparin during the procedure. An ACT was done multiple times to check blood clotting time. Findings were as follows: 1. Left heart catheterization with left ventricular end-diastolic pressure measurement: With the help of a tiger five Danish catheter as well as a J-tip wire we were able to cross the aortic valve and measured left ventricular end-diastolic pressure which was marginally elevated at 13 mm of mercury. There was no gradient across the aortic valve on the pullback. 2. Selective right and left coronary angiography utilizing right transradial approach: 1. The right coronary artery comes off the right coronary cusp it is a large dominant system it has mild irregularity but no discrete stenosis was noted. It bifurcates distally into large posterior descending artery as well as large posterolateral branches without significant atherosclerotic plaquing. 2. The left main comes off the left coronary cusp it is a large widely patent vessel it divides up into an LAD and left circumflex vessel. 3. The left anterior descending artery is a large vessel with two large diagonal branches. Has mild irregularity at 30% in the proximal to mid segment. No significant stenosis was noted. The LAD has transapical course. 4. The left circumflex vessel is medium-sized vessel it gives rise to large obtuse marginal branch, in the mid segment of the 1st obtuse marginal branches that is tight subtotal occlusion at 99%. It is the culprit vessel the patient's presentation. 3. Primary angioplasty with single drug-eluting stent to the mid obtuse marginal branch: [place] five [place] catheterization diagnostic catheter was exchanged for an XB 3.5 guiding catheter. A C-arm blue wire was used to traverse the lesion. After crossing of the lesion it was pre-dilated using a two 0 x 12 balloon and then was stented using3 x 20 [place] MELISSA with excellent final result all the way up to a 14 atmospheric pressure. The patient has ANNI two flow at the begi nning of the case and a indent up with ANNI three flow after stent was placed. Antiplatelet and anticoagulation during the procedure: Patient received IV heparin with the ACT mounting to 250, the dose was adjusted for his weight is receiving 100 units/kg body weight. He also received loading dose of 300 of Plavix as with a at 162 of baby aspirin. Impression and plan: 1. High-risk non ST-elevation myocardial infarction with dynamic EKG changes and high troponin secondary to a culprit mid obtuse marginal branch stenosis. 2. Successful PCI to the mid obtuse marginal branch using single drug-eluting stent. 3. Patient would need to be on dual antiplatelet therapy for minimum of12 months. And thereafter he would need a single antiplatelet indefinitely. He would need to undergo complete smoking cessation and risk factor modification. 4. Patient would need to be on high-dose statin to achieve LDL target less than 50 mg/dL. He would need an echocardiogram to assess left ventricular systolic function and proceed with goal-directed therapy as indicated. Condition Good CS Clinical Frailty Scale [facility] Clinical Frailty Scale: Very Fit Stress Test Stress Test Performed: No Dominance Dominance: Right ANNI ANNI Flow: Post- Intervention (ANNI-3), Pre-Intervention (ANNI-2) Lesion Lesion Complexity: High/C Residual Stenosis post procedu: 0% Disposition MORAIMA CAMACHO MD Sep 10, 2024 09:51
[2024-09-10] MEDS: CLOPIDOGREL BISULFATE 75 MG TAB ONE (09:58)
[2024-09-10] MEDS: ASPirin 81 mg TAB ONE (09:58)
[2024-09-10] MEDS: ASPirin 81 mg TAB PO SCH (10:00)
[2024-09-10] MEDS ORDERED: CITA-77 PO (11:48)
[2024-09-10] MEDS ORDERED: LOSA-535 PO (11:48)
[2024-09-10] MEDS ORDERED: PROP60CA34 PO (11:48)
[2024-09-10] MEDS ORDERED: TAMS1CAP25 PO (11:48)
[2024-09-10] MEDS: PANTOPRAZOLE 40 MG/10 ML VIAL INJ IV SCH (12:56)
[2024-09-10] MEDS: LOSARTAN POTASSIUM 25 MG TAB PO SCH (12:57)
[2024-09-10] MEDS: METOPROLOL SUCCINATE XL 50 MG TAB PO SCH (12:59)
[2024-09-10] MEDS: hydrALAZINE HCL 20 MG/ML VL IV PRN (14:05)
[2024-09-10] MEDS ORDERED: PROP120C42 PO (14:09)
[2024-09-10] MEDS: ONDANSETRON HCL 4 MG/2 ML VIAL IV PRN (15:13)
--- NOTE | 2024-09-10 15:41 | DVHPNRES ---
Progress Note Date Seen: Sep 10, 2024 Resident Creating Document: RAFAEL ARTHUR RESIDENT Medical Necessity Reason Pt with a Central, PICC or Fol: No Subjective Review of Systems KEANU TOMPKINS Sully is a 59-year-old male with a PMH of HTN, COPD, asthma, BPH, nephrolithiasis, anxiety transferred from [facility] for the evaluation of elevated troponin levels. Patient reported he initially presented to the [facility] with the chief complaints of epigastric pain, and chest pain substernal, pressure-like, radiating to the left upper extremity, and associated with nausea, diarrhea and vomiting for two days. Per patient, reported he initially got these symptoms on Friday and that it pain management and again due to lack of improvement in his symptoms he again visited hospital, did lab test which showed elevated troponins, advised him for higher level of care. On my assessment patient denies fever, diaphoresis, shortness of breath, abdominal pain, headache, fever, chills and other acute associated symptoms. PMH: PSH: Hernia repair, left cholecystectomy, open reduction and internal fixation pelvic bone Family history: Reviewed, a 0 bilateral ankle of massive NC in his 40s Social history: Lives with family. Patient uses marijuana but denies alcohol and tobacco abuse. Former smoker with 60 pack years. Allergies: No known allergies Patient seen and examined at the bedside. Due to elevated troponins x3 and EKG changes which showed depression to inferior leads with associated Q-waves as well as reciprocal changes to lateral wall so,consumer experience consultant evaluated the patient and took him to the collaborating supervising physician, performed left heart catheterization with primary angioplasty with MELISSA in margin branch, initiated DAPT times and advised to undergo complete smoking cessation and risk factor modification. and started on high-dose statins. Patient tolerated the procedure well. Monitoring Patient reports: No new complaints Objective vital signs Vital Sign Date Time Temp Pulse Resp B/P (MAP) Pulse Ox O2 Delivery O2 Flow Rate FiO2 09/10/24 14:45 98.7 96 18 169/100 (123) 96 98.7 09/10/24 07:40 Room Air* 0 21 Total Intake and Output 09/09/24 09/09/24 09/10/24 15:00 23:00 07:00 Intake Total 120 ml Balance 120 ml medications Current Medications Medications Dose Ordered Sig/Severo Route Start Time Stop Time Status Last Admin Dose Admin Sodium Chloride 1,000 ml @ 60 mls/hr [id number] IV 09/10/24 02:30 09/10/24 03:26 60 MLS/HR Ondansetron HCl 4 mg Q4HP PRN IV 09/10/24 02:30 09/10/24 15:13 4 MG Acetaminophen 650 mg Q6HP PRN PO 09/10/24 02:30 Morphine Sulfate 2 mg Q4HPRN PRN IV 09/10/24 02:30 Nitroglycerin 0.4 mg Q5MINP PRN SL 09/10/24 02:30 Morphine Sulfate 2 mg Q30M PRN IV 09/10/24 02:30 Aspirin 81 mg DAILY PO 09/10/24 10:00 Atorvastatin Calcium 40 mg DAILY PO 09/10/24 22:00 Pantoprazole Sodium 40 mg DAILY IV 09/10/24 10:00 09/10/24 12:56 40 MG Albuterol 2.5 mg Q6HWA PRN NEB 09/10/24 05:15 09/10/24 06:02 2.5 MG Ipratropium [place] 0.5 mg Q6HWA NEB 09/10/24 06:00 09/10/24 06:01 0.5 MG Metoprolol Succinate 25 mg DAILY PO 09/10/24 10:00 09/10/24 12:59 25 MG Losartan Potassium 25 mg DAILY PO 09/10/24 10:00 09/10/24 12:57 25 MG Hydralazine HCl 10 mg Q6HP PRN IV 09/10/24 09:15 09/10/24 14:05 10 MG Clopidogrel Bisulfate 75 mg DAILY PO 09/11/24 10:00 Examination Pt is lying on bed General Appearance: Alert, Oriented X3, Cooperative, Not in acute distress HEENT: Atraumatic, Mucous membranes moist/pink Respiratory: Clear to auscultation, Normal air movement, No added sounds Cardiovascular: Regular rate, Normal S1, Normal S2, No murmurs Abdominal: Active bowel sounds, Soft, no distention, no tenderness Extremities: No edema, Normal pulses, No tenderness/swelling Skin: No Significant rash, except past surgical scars Neuro: Normal speech, sensorimotor deficits none Psych/Mental Status: Mental status NL, Mood NL Nurse was there as sharperone during examination laboratory and microbiology Laboratory Tests 09/10/24 03:27 Test 09/10/24 03:27 Range/Units Serum Glucose 100 74-106 mg/dL Labs and/or images reviewed: Labs reviewed by me, Image(s) reviewed by me Problem List/Assessment/Plan Problem List/Assessment/Plan # Evolved inferior wall myocardial infarction - elevated troponins x3 - EKG changes which showed depression to inferior leads with associated Q-waves as well as reciprocal changes to lateral wall - consumer experience consultant evaluated the patient and performed PCI to the mid obtuse marginal branch using single drug-eluting stent - initiated DAPT with aspirin and Plavix along with high-dose statin at risk factor modification - pending echocardiogram # Hypertension - continuously monitored - resumed home meds # Dyslipidemia - counseled lifestyle modifications including diet and exercise - started on high-dose statins # COPD not in exacerbation - on breathing treatments #Cannabinoid abuse disorder - counseled regarding cessation for more than 17 minutes DAPT Protonix Cardiac diet Reconciled home meds Goals of care discussed with the patient for more than 27 minutes: Full code status Case management discussed with Dr. Jeronimo, patient and nurse Plan discussed with: Patient Date of Service: Sep 10, 2024 Billing Provider: JOSE JERONIMO MD Common Visit Codes: [id number] INP/OBS CARE(HIGH) Secondary Visit Codes: [id number] CARE PLAN 30 MINUTES RAFAEL ARTHUR RESIDENT Sep 10, 2024 15:41 JOSE JERONIMO MD Sep 11, 2024 21:10
[2024-09-10 15:52] LABS: INR 1.05 (0.9-1.15); Partial Thromboplastin Time 27.3 SEC (24.5-34.5); Prothrombin Time 11.1 sec (9.3-11.8)
--- NOTE | 2024-09-10 16:25 | DVHSR ---
APPROVED REPORT EXAM: Two-dimensional and M-mode echocardiogram with Doppler and color Doppler. Blood Pressure: 152/90 mmHg INDICATION NSTEMI RISK FACTORS Height: 5'11, Weight: 194 DIMENSIONS LVDd5.0 (3.8-5.7cm)LA (2D)4.1 (1.9-4.0cm)Aortic Root4.0 (2.0-3.7cm) LVDs3.6 (2.5-4.0cm)LA (MM) (1.9-4.0cm)Aortic Cusp Exc2.1 (1.5-2.0cm) EF (%) 55.0 (55-70%)Rt. Atrium4.4 (1.9-4.0cm)Asc. Aorta4.1 cm IVSd1.0 (0.7-1.1cm)RV (D) (1.8-2.4cm) PWd1.2 (0.7-1.1cm) Mitral Valve MitralMitral Stenosis E wave0.97m/sMV Mean GR.mmHg A wave0.53m/sMV Peak GR.71mmHg E/A ratio1.82D MVAcm2 DECEL [id number] 1/2 [place] Aortic Valve Aortic ValveAortic Stenosis V11.25m/Anthony Mean GR.4mmHg V21.39m/Anthony Peak GR.8mmHg LVOT Diameter2.5 (1.8-2.4cm)Doppler AVA4.41cm2 Pulmonic Valve V20.89m/s Tricuspid Valve TR Velocity2.53m/s [id number] Conclusion Normal left ventricular size and dimension. Normal left ventricular systolic function estimated ejec tion fraction 55%. There is a grade 1 diastolic dysfunction. Normal right ventricular size and dimension. Normal right ventricular systolic function. Slightly i ncreased right ventricular systolic [id number] mm of mercury Normal biatrial size and dimension. Normal aortic valve structure and function. Normal mitral valve structure and function. Normal tricuspid valve structure and function. The pulmonary valve is grossly normal. No pericardial effusion.
[2024-09-10] MEDS: PANTOPRAZOLE 40 MG/10 ML VIAL INJ IV ONE (16:56)
[2024-09-10] MEDS: ACETAMINOPHEN 325 MG TAB PO PRN (18:17)
[2024-09-10] MEDS: MORPHINE SULFATE INJ 2 MG/ml SYRG IV PRN (21:48)
[2024-09-10] MEDS: ATORVASTATIN 20 MG TAB PO SCH (21:56)
[2024-09-10] MEDS ORDERED: PROPRANOLOL HCL 20 MG TAB PO SCH (22:00)
[2024-09-10] MEDS: METOCLOPRAMIDE HCL 5MG/ml INJ 2ml VIAL IV ONE (22:57)
[2024-09-10] MEDS: ONDANSETRON HCL 4 MG/2 ML VIAL IV ONE (23:30)
[2024-09-11] VITALS (15 sets, daily range): BP systolic 128–175; BP diastolic 76–108; PULSE 70–116; RESP 12–20; TEMP 98–99.2; O2SAT 93–100
[2024-09-11] MEDS: hydrALAZINE HCL 20 MG/ML VL IV ONE ×2 (00:12→02:26)
[2024-09-11] MEDS: amLODIPine BESYLATE 5 MG TAB PO ONE ×2 (00:54→02:24)
[2024-09-11] MEDS: TEMAZEPAM 15 MG CAP PO ONE (00:54)
[2024-09-11 07:04] LABS: Basophils # (auto) 0 10 ^3/uL (0-0.2); Basophils % (auto) 0.1 % (0.0-2.0); Eosinophils # (auto) 0 10 ^3/uL (0-0.8); Hematocrit 49.1 % (41.0-53.0); Hemoglobin 16.9 g/dL (13.5-17.5); Lymphocytes # (auto) 1.5 10 ^3/uL (0.4-5.4); Lymphocytes % (auto) 7.2 % (10.0-50.0); Mean Corpuscular Hemoglobin 33.2 pg (28.0-32.0); Mean Corpuscular Hgb Conc. 34.5 g/dL (32.0-36.0); Mean Corpuscular Volume 96.2 fL (80.0-100.0); Monocytes # (auto) 2.6 10 ^3/uL (0-1.3); Monocytes % (auto) 12.6 % (0.0-12.0); Neutrophils # (auto) 16.6 10 ^3/uL (1.6-8.6); Neutrophils % (auto) 80.1 % (37.0-80.0); Nucleated Red Blood Cells % 0.1 %; Platelet Count (auto) 317 10^3/uL (140-450); Red Cell Distribution Width 12.6 % (11.8-14.3); White Blood Cell 20.7 10^3/uL (4.4-10.8)
[2024-09-11 07:26] LABS: Anion Gap 14 (5-15); Carbon Dioxide 21 mmol/L (20-31); Chloride 103 mmol/L (98-107); Potassium 3.7 mmol/L (3.5-5.1); Sodium 138 mmol/L (136-145)
[2024-09-11 07:27] LABS: Calcium 10.4 mg/dL (8.7-10.4)
[2024-09-11 07:32] LABS: BUN/Creatinine Ratio 12.4 (10.0-20.0); Blood Urea Nitrogen 15 mg/dL (9-23)
[2024-09-11 07:35] LABS: Glucose 150 mg/dL (74-106)
[2024-09-11] MEDS: ATORVASTATIN 20 MG TAB PO SCH (09:19)
[2024-09-11] MEDS: LOSARTAN POTASSIUM 25 MG TAB PO SCH (09:20)
[2024-09-11] MEDS: TAMSULOSIN HYDROCHLORIDE 0.4 MG CAP PO SCH (09:20)
[2024-09-11] MEDS: CITALOPRAM HYDROBR 20 MG TAB PO SCH (09:21)
[2024-09-11] MEDS: amLODIPine BESYLATE 5 MG TAB PO SCH (09:21)
[2024-09-11] MEDS: CLOPIDOGREL BISULFATE 75 MG TAB PO SCH (09:21)
[2024-09-11] MEDS ORDERED: LOSARTAN POTASSIUM 50 MG TAB PO SCH (10:00)
[2024-09-11] MEDS: METOCLOPRAMIDE HCL 5MG/ml INJ 2ml VIAL IV PRN (11:00)
[2024-09-11] MEDS: SODIUM CHLORIDE 0.9% 1,000 ML IV SCH (11:15)
--- NOTE | 2024-09-11 13:42 | DVHPN2 ---
Consult Progress Note Subjective Review of Systems: CVS:Normal (Denies CP, Palpitaitons, SOB), GI:Abnormal (N/V) Objective vital signs Vital Sign Date Time Temp Pulse Resp B/P (MAP) Pulse Ox O2 Delivery O2 Flow Rate FiO2 09/11/24 12:51 98.1 116 12 175/105 (128) 95 98.1 09/11/24 11:33 Room Air* 0 21 Total Intake and Output 09/10/24 09/10/24 09/11/24 15:00 23:00 07:00 Intake Total 720 ml 800 ml Output Total 0 ml Balance 720 ml 800 ml medications Current Medications Medications Dose Ordered Sig/Severo Route Start Time Stop Time Status Last Admin Dose Admin Ondansetron HCl 4 mg Q4HP PRN IV 09/10/24 02:30 09/11/24 09:15 4 MG Acetaminophen 650 mg Q6HP PRN PO 09/10/24 02:30 09/10/24 18:17 650 MG Morphine Sulfate 2 mg Q4HPRN PRN IV 09/10/24 02:30 09/10/24 21:48 2 MG Nitroglycerin 0.4 mg Q5MINP PRN SL 09/10/24 02:30 Morphine Sulfate 2 mg Q30M PRN IV 09/10/24 02:30 Aspirin 81 mg DAILY PO 09/10/24 10:00 09/11/24 09:21 81 MG Pantoprazole Sodium 40 mg DAILY IV 09/10/24 10:00 09/11/24 09:15 40 MG Albuterol 2.5 mg Q6HWA PRN NEB 09/10/24 05:15 09/10/24 19:27 2.5 MG Ipratropium [place] 0.5 mg Q6HWA NEB 09/10/24 06:00 09/10/24 19:27 0.5 MG Metoprolol Succinate 25 mg DAILY PO 09/10/24 10:00 09/11/24 09:18 25 MG Hydralazine HCl 10 mg Q6HP PRN IV 09/10/24 09:15 09/11/24 11:22 10 MG Clopidogrel Bisulfate 75 mg DAILY PO 09/11/24 10:00 09/11/24 09:21 75 MG Citalopram Hydrobromide 20 mg DAILY PO 09/11/24 10:00 09/11/24 09:21 20 MG Tamsulosin HCl 0.4 mg DAILY PO 09/11/24 10:00 09/11/24 09:20 0.4 MG Atorvastatin Calcium 80 mg DAILY PO 09/11/24 10:00 09/11/24 09:19 80 MG Losartan Potassium 100 mg DAILY PO 09/11/24 10:00 09/11/24 09:20 100 MG Amlodipine Besylate 5 mg DAILY PO 09/11/24 10:00 09/11/24 09:21 5 MG Metoclopramide HCl 5 mg Q6HPRN PRN IV 09/11/24 10:45 09/11/24 11:00 5 MG Sodium Chloride 1,000 ml @ 75 mls/hr [id number] IV 09/11/24 11:15 09/11/24 11:15 75 MLS/HR laboratory and microbiology Laboratory Tests 09/11/24 06:25 Test 09/11/24 06:25 Range/Units Serum Glucose 150 H 74-106 mg/dL Problem List/Assessment/Plan Problem List/Assessment/Plan Evolved inferior wall myocardial infarction Pertinent family history for CV disease Uncontrolled Hypertension Dyslipidemia, newly diagnosed COPD with hx of tobacco use and 60 pack-years Cannabinoid use Nausea and Vomiting Elevated BNP Elevatetd LFTs Plan/Recommendation (Dr. Camacho) * Continue dual antiplatelet therapy with aspirin and Plavix. Started on Integrilin for now as not tolerating p.o. with continued nausea and vomiting. * Abdominal ultrasound pending. * Continue current regimen. IV p.r.n. as needed with N/V. Case Discussed with Dr Camacho. S/p coronary angiogram showing 99% lesion to left circumflex, OM1. S/p MELISSA x1. Continue aspirin and Plavix. Overnight patient noted to have significant episodes nausea and vomiting that continued shortly after a.m. medication with Plavix. We will start Integrilin drip until patient able to tolerate p.o.. Ultrasound abdomen pending. Follow-up echo shows EF 55%, no valvular structural abnormalities noted. Critical care, time spent: 37 minutes This medical document was created using an electronic medical record system with voice recognition software and computerized dictation system. Although this document has been carefully reviewed, there might still be some phonetic and typographical errors. Occasional wrong-word or ``sound-alike substitutions may have occurred due to the inherent limitations of voice recognition software. These areas are purely typographical due to imperfections of the software programs and do not reflect any compromise in the patient's medical care. Please read the chart carefully and recognize, using context, where these substitutions have occurred. Plan discussed with: Patient, Daughter Date of Service: Sep 11, 2024 Billing Provider: KEITH CAMACHO MD Common Visit Codes: [id number] INP/OBS CARE(HIGH), [id number] CARE 30-74 MIN [facility] Sep 11, 2024 13:42
[2024-09-11] MEDS: EPTIFIBATIDE DRIP(0.75MG/ML) 100 ML IV SCH (15:15)
--- NOTE | 2024-09-11 17:09 | DVH ---
INDICATION: Postprandial emesis, evaluate gallstones TECHNIQUE: Multiple real-time sonographic images were obtained of the right upper quadrant. COMPARISON: None FINDINGS: The liver demonstrates homogeneous echotexture without focal mass lesions. The liver measu res 15.1 cm. There is no intrahepatic or extrahepatic ductal dilatation. The common duct measures 0.5 cm. The gallbladder is without evidence of stone or sludge. The gallbladder wall measures 0.2 cm and is within normal limits. The right kidney measures 11.2 cm. The right kidney is normal in contour, size, and shape. The echo genicity is normal. There is no hydronephrosis. The pancreas is not well visualized due to overlying bowel gas. IMPRESSION: 1. Unremarkable right upper quadrant sonogram.
--- NOTE | 2024-09-11 22:45 | DVHPNRES ---
Progress Note Date Seen: Sep 11, 2024 Resident Creating Document: SONI BERRY RESIDENT Medical Necessity Reason Pt with a Central, PICC or Fol: No Subjective Review of Systems Jeff Sully Madden is a 59-year-old male who was transferred from [facility] to the ED with presented diagnosis of NSTEMI. Patient reported he presented to the [facility] with the chief complaints of epigastric pain, and chest pain substernal, pressure-like, radiating to the left upper extremity, and associated with nausea, diarrhea and vomiting for two days. Per patient, reported he initially got these symptoms five days before his admission, and was treated as gastritis the [facility] [place], but then reconsulted due to lack of improvement in symptoms where he was diagnosed with NSTEMI. Denies palpitation, syncope, dyspnea, constipation, sick contacts, recent travel, dysuria, bleeding and motor or sensory deficits. Past medical history: Hypertension, COPD, asthma, BPH, nephrolithiasis, anxiety Surgical history: Hernia repair, left cholecystectomy, open reduction and internal fixation pelvic bone Family history: Maternal uncle of [place] in his 40s [facility] history[facility] [place] Heavy marijuana abuse. Currently vapes tobacco (has 60 pack-year history of smoking), has stopped smoking cigarettes 2 years ago. Denies alcohol and other drug abuse. Allergies: Denies Home medication: Losartan 100 mg p.o. daily, propranolol, citalopram, tamsulosin Patient seen and examined at the bedside. Patient currently presented nausea and vomiting episodes overnight and during the a.m.. Cardiology evaluated the patient and indicated IV Integrilin until patient can tolerate p.o. medication (particularly aspirin and clopidogrel). Patient is currently tolerating p.o. medication, we will evaluate discontinuing IV antiplatelet medication (required clearance from Cardiology). Completed abdominal ultrasound which was unremarkable. Emesis may be secondary to cannabinoid abuse. Objective vital signs Vital Sign Date Time Temp Pulse Resp B/P (MAP) Pulse Ox O2 Delivery O2 Flow Rate FiO2 09/11/24 19:44 98 Room Air 0.0 09/11/24 19:44 90 18 09/11/24 19:44 21 09/11/24 16:56 99.2 137/86 (103) 99.2 Total Intake and Output 09/10/24 09/10/24 09/11/24 15:00 23:00 07:00 Intake Total 720 ml 800 ml Output Total 0 ml Balance 720 ml 800 ml medications Current Medications Medications Dose Ordered Sig/Severo Route Start Time Stop Time Status Last Admin Dose Admin Ondansetron HCl 4 mg Q4HP PRN IV 09/10/24 02:30 09/11/24 21:09 4 MG Acetaminophen 650 mg Q6HP PRN PO 09/10/24 02:30 09/10/24 18:17 650 MG Morphine Sulfate 2 mg Q4HPRN PRN IV 09/10/24 02:30 09/10/24 21:48 2 MG Nitroglycerin 0.4 mg Q5MINP PRN SL 09/10/24 02:30 Morphine Sulfate 2 mg Q30M PRN IV 09/10/24 02:30 Aspirin 81 mg DAILY PO 09/10/24 10:00 09/11/24 09:21 81 MG Pantoprazole Sodium 40 mg DAILY IV 09/10/24 10:00 09/11/24 09:15 40 MG Albuterol 2.5 mg Q6HWA PRN NEB 09/10/24 05:15 09/11/24 19:38 2.5 MG Ipratropium [place] 0.5 mg Q6HWA NEB 09/10/24 06:00 09/11/24 19:38 0.5 MG Metoprolol Succinate 25 mg DAILY PO 09/10/24 10:00 09/11/24 09:18 25 MG Hydralazine HCl 10 mg Q6HP PRN IV 09/10/24 09:15 09/11/24 11:22 10 MG Clopidogrel Bisulfate 75 mg DAILY PO 09/11/24 10:00 09/11/24 09:21 75 MG Citalopram Hydrobromide 20 mg DAILY PO 09/11/24 10:00 09/11/24 09:21 20 MG Tamsulosin HCl 0.4 mg DAILY PO 09/11/24 10:00 09/11/24 09:20 0.4 MG Atorvastatin Calcium 80 mg DAILY PO 09/11/24 10:00 09/11/24 09:19 80 MG Losartan Potassium 100 mg DAILY PO 09/11/24 10:00 09/11/24 09:20 100 MG Amlodipine Besylate 5 mg DAILY PO 09/11/24 10:00 09/11/24 09:21 5 MG Metoclopramide HCl 5 mg Q6HPRN PRN IV 09/11/24 10:45 09/11/24 18:11 5 MG Sodium Chloride 1,000 ml @ 75 mls/hr [id number] IV 09/11/24 11:15 09/11/24 11:15 75 MLS/HR Eptifibatide 100 ml @ 14 mls/hr Q7H9M IV 09/11/24 13:45 09/11/24 21:11 14 MLS/HR Examination Patient lying in bed, in no acute distress General: Lucid, afebrile, mucosae are moist Cardiovascular: Normal S1 and S2. No murmurs, gallops or rubs Respiratory: Normal ventilation mechanics. Clear lung sounds on auscultation Abdomen: Soft, nontender, no organomegaly, normal bowel sounds MSK/skin: Mobilizes 4 limbs. Skin is dry and warm. Puncture site on right radial region with no murmurs and no hematoma. Neurological: Oriented in 3 spheres. No motor no sensitive deficits. Pupils are isocoric and reactive laboratory and microbiology Laboratory Tests 09/11/24 06:25 Test 09/11/24 06:25 Range/Units Serum Glucose 150 H 74-106 mg/dL Labs and/or images reviewed: Labs reviewed by me, Image(s) reviewed by me Problem List/Assessment/Plan Problem List/Assessment/Plan NSTEMI type I Elevated troponin x3, cardiac chest pain and EKG with inferior ST depression Cardiology on board: Completed PCI with stent placement to the mid obtuse marginal branch of circumflex due to severe stenosis. Indicated DAPT (aspirin and Plavix), statins, metoprolol and losartan. Due to nausea and vomiting cardiology initiated IV Integrilin until patient can tolerate p.o. medication Echocardiogram: LVEF 55%, grade 1 diastolic dysfunction, RVSP 34 mmHg Probable cannabinoid hyperemesis Patient continues with nausea and vomiting. Ordered abdominal ultrasound: Unremarkable Currently on IV antiplatelet medication Patient is now tolerating soft mechanical diet Required IV fluids Counseled on cessation for 18 minutes Hypertension Increase losartan to 100 mg p.o. daily. Due to vomiting also indicated hydralazine IV Gave advice on healthy lifestyle habits Dyslipidemia Currently on high dose statins Gave advice on healthy lifestyle habits COPD not in exacerbation Continue with home medication for bronchodilators Cannabinoid abuse disorder Counseled regarding cessation for 18 minutes Goals of care discussed with patient for 20 minutes: Full code status Discussed plan with Dr. Miranda, patient, spouse and nurses: Completed abdominal ultrasound due to persistent emesis which was within normal limits. Probably secondary to cannabinoid hyperemesis. Patient is currently on IV Integrilin for antiplatelet therapy since patient requires DAPT. Cardiology will evaluate discontinuation in the a.m. once emesis has resolved. Plan discussed with: Patient, Spouse, Other (Nurses) My Orders My Orders Orders - SONI BERRY RESIDENT Procedure Category Date Status Time Atorvastatin (Lipitor) PHA 09/11/24 In Process 10:00 Losartan Tablet PHA 09/11/24 In Process (Cozaar Tablet) 10:00 Amlodipine Tablet PHA 09/11/24 In Process (Norvasc Tablet) 10:00 Metoclopramide PHA 09/11/24 In Process Injection (Reglan 10:45 Sodium Chloride 0.9% PHA 09/11/24 In Process 11:15 Abdomen Limited US 09/11/24 Resulted 11:08 Mechanical Soft Diet DIET 09/11/24 Transmitted Dinner Addendum Addendum Addendum I was physically present for the lara portions of the service provided to patient by THE RESIDENT. I have reviewed the documentation, discussed the case with resident and agree with the resident's documentation except as noted. Also the patient's clinical case was discussed with the patient's nurse. This medical document was created using an electronic medical record system with computerized dictation system. Although this document has been carefully reviewed, there might still be some phonetic and typographical errors. These areas are purely typographical due to imperfections of the software programs, and do not reflect any compromise in the patient's medical care. Late signature. Date of Service: Sep 11, 2024 Billing Provider: JHONATAN MIRANDA MD Common Visit Codes: [id number] INP/OBS CARE(HIGH) Secondary Visit Codes: [id number] CHNG SMOKING >10MIN (Counseled on marijuana use cessation for 18 minutes), [id number] CARE PLAN 30 MINUTES (20 minutes) SONI BERRY RESIDENT Sep 11, 2024 22:45 JHONATAN MIRANDA MD Sep 13, 2024 04:58
[2024-09-12] VITALS (11 sets, daily range): BP systolic 100–128; BP diastolic 61–85; PULSE 55–121; RESP 16–22; TEMP 98–98.9; O2SAT 93–100
[2024-09-12] MEDS: LORazepam 2MG/ML-1ML VIAL IV PRN (06:16)
[2024-09-12 06:59] LABS: Basophils # (auto) 0 10 ^3/uL (0-0.2); Basophils % (auto) 0.2 % (0.0-2.0); Eosinophils # (auto) 0 10 ^3/uL (0-0.8); Eosinophils % (auto) 0.1 % (0.0-7.0); Hemoglobin 15.8 g/dL (13.5-17.5); Lymphocytes # (auto) 1.4 10 ^3/uL (0.4-5.4); Lymphocytes % (auto) 8.2 % (10.0-50.0); Mean Corpuscular Hemoglobin 32.6 pg (28.0-32.0); Mean Corpuscular Hgb Conc. 33.6 g/dL (32.0-36.0); Monocytes # (auto) 2.4 10 ^3/uL (0-1.3); Monocytes % (auto) 13.9 % (0.0-12.0); Neutrophils # (auto) 13.5 10 ^3/uL (1.6-8.6); Neutrophils % (auto) 77.6 % (37.0-80.0); Platelet Count (auto) 267 10^3/uL (140-450); Red Blood Cells 4.85 10^6/uL (4.5-5.90); White Blood Cell 17.4 10^3/uL (4.4-10.8)
[2024-09-12 07:13] LABS: Alanine Aminotransferase 35 U/L (7-40); Albumin 4.3 g/dL (3.2-4.8); Alkaline Phosphatase 81 U/L (46-116); Anion Gap 12 (5-15); BUN/Creatinine Ratio 15.1 (10.0-20.0); Blood Urea Nitrogen 18 mg/dL (9-23); Calcium 9.7 mg/dL (8.7-10.4); Carbon Dioxide 22 mmol/L (20-31); Chloride 103 mmol/L (98-107); Magnesium 1.9 mg/dL (1.6-2.6); Sodium 137 mmol/L (136-145); Total Protein 6.9 g/dL (5.7-8.2)
[2024-09-12 07:16] LABS: Aspartate Aminotransferase 72 U/L (13-40); Bilirubin, Total 1.4 mg/dL (0.2-1.0); Glucose 160 mg/dL (74-106); Phosphorus 1.6 mg/dL (2.4-5.1); Potassium 3.1 mmol/L (3.5-5.1)
[2024-09-12 07:48] LABS: COVID19 ANTIGEN SOFIA FIA NEGATIVE (NEGATIVE)
--- NOTE | 2024-09-12 11:27 | DVHPN2 ---
Consult Progress Note Subjective Review of Systems: RESPIRATORY:Abnormal (cough), GI:Abnormal (Nausea) Objective vital signs Vital Sign Date Time Temp Pulse Resp B/P (MAP) Pulse Ox O2 Delivery O2 Flow Rate FiO2 09/12/24 10:19 128/83 09/12/24 09:03 90 09/12/24 09:00 98.2 20 96 98.2 09/12/24 06:19 Room Air 0.0 09/12/24 06:19 21 Total Intake and Output 09/11/24 09/11/24 09/12/24 15:00 23:00 07:00 Intake Total 330 ml 280 ml 1503 ml Output Total 0 ml Balance 330 ml 280 ml 1503 ml medications Current Medications Medications Dose Ordered Sig/Severo Route Start Time Stop Time Status Last Admin Dose Admin Ondansetron HCl 4 mg Q4HP PRN IV 09/10/24 02:30 09/12/24 10:19 4 MG Acetaminophen 650 mg Q6HP PRN PO 09/10/24 02:30 09/10/24 18:17 650 MG Morphine Sulfate 2 mg Q4HPRN PRN IV 09/10/24 02:30 09/10/24 21:48 2 MG Nitroglycerin 0.4 mg Q5MINP PRN SL 09/10/24 02:30 Morphine Sulfate 2 mg Q30M PRN IV 09/10/24 02:30 Aspirin 81 mg DAILY PO 09/10/24 10:00 09/12/24 09:03 81 MG Pantoprazole Sodium 40 mg DAILY IV 09/10/24 10:00 09/12/24 09:01 40 MG Albuterol 2.5 mg Q6HWA PRN NEB 09/10/24 05:15 09/11/24 19:38 2.5 MG Ipratropium [place] 0.5 mg Q6HWA NEB 09/10/24 06:00 09/12/24 06:19 0.5 MG Metoprolol Succinate 25 mg DAILY PO 09/10/24 10:00 09/12/24 09:03 25 MG Hydralazine HCl 10 mg Q6HP PRN IV 09/10/24 09:15 09/11/24 11:22 10 MG Clopidogrel Bisulfate 75 mg DAILY PO 09/11/24 10:00 09/12/24 09:03 75 MG Citalopram Hydrobromide 20 mg DAILY PO 09/11/24 10:00 09/12/24 09:02 20 MG Tamsulosin HCl 0.4 mg DAILY PO 09/11/24 10:00 09/12/24 09:02 0.4 MG Atorvastatin Calcium 80 mg DAILY PO 09/11/24 10:00 09/12/24 09:01 80 MG Losartan Potassium 100 mg DAILY PO 09/11/24 10:00 09/12/24 09:02 100 MG Amlodipine Besylate 5 mg DAILY PO 09/11/24 10:00 09/12/24 10:19 5 MG Metoclopramide HCl 5 mg Q6HPRN PRN IV 09/11/24 10:45 09/12/24 07:41 5 MG Sodium Chloride 1,000 ml @ 75 mls/hr [id number] IV 09/11/24 11:15 09/12/24 00:57 75 MLS/HR Eptifibatide 100 ml @ 14 mls/hr Q7H9M IV 09/11/24 13:45 09/12/24 09:55 14 MLS/HR Lorazepam 1 mg Q8HP PRN IV 09/12/24 05:45 09/12/24 06:16 1 MG laboratory and microbiology Laboratory Tests 09/12/24 05:40 Test 09/12/24 05:40 Range/Units Serum Glucose 160 H 74-106 mg/dL Problem List/Assessment/Plan Problem List/Assessment/Plan Evolved inferior wall myocardial infarction Pertinent family history for CV disease Uncontrolled Hypertension Dyslipidemia, newly diagnosed COPD with hx of tobacco use and 60 pack-years Cannabinoid use Nausea and Vomiting Elevated BNP Elevatetd LFTs Hypokalemia Plan/Recommendation (Dr. Camacho) * Continue dual antiplatelet therapy with aspirin and Plavix. Started on Integrilin for now as not tolerating p.o. with continued nausea and vomiting. * Abdominal ultrasound negative. * Continue current regimen. IV p.r.n. as needed with N/V. * Possible cannabinoid hyperemesis, if does not resolve recommend possible GI consult. On Zofran and Reglan. * Monitoring and replace electrolytes Case Discussed with Dr Camacho. S/p coronary angiogram showing 99% lesion to left circumflex, OM1. S/p MELISSA x1. Continue aspirin and Plavix. Continues to have significant episodes nausea no vomiting. On Zofran and Reglan. Plan to restart p.o. meds if tolerating. If continues to not tolerate meds recommend GI consult. Ultrasound abdomen negative. Normal LVEF of 55%, no valvular structural abnormalities noted on echo. This medical document was created using an electronic medical record system with voice recognition software and computerized dictation system. Although this document has been carefully reviewed, there might still be some phonetic and typographical errors. Occasional wrong-word or ``sound-alike substitutions may have occurred due to the inherent limitations of voice recognition software. These areas are purely typographical due to imperfections of the software programs and do not reflect any compromise in the patient's medical care. Please read the chart carefully and recognize, using context, where these substitutions have occurred. Plan discussed with: Patient, Spouse, Daughter Date of Service: Sep 12, 2024 Billing Provider: KEITH CAMACHO MD Common Visit Codes: [id number] INP/OBS CARE(HIGH) TIFFANY SAUCEDO AGACNP Sep 12, 2024 11:27
[2024-09-12] MEDS ORDERED: POTASSIUM CHL 20MEQ/100ML 100 ML IV SCH (11:30)
[2024-09-12] MEDS: POTASSIUM PHOSPHATE 44 MEQ in D5W 5% 250 ML IV ONE (13:29)
[2024-09-12] MEDS ORDERED: HALOPERIDOL 1 MG TAB PO ONE (13:30)
[2024-09-12] MEDS ORDERED: HALOPERIDOL LACTATE 5 MG/ML INJ VIAL IV PRN (14:00)
--- NOTE | 2024-09-12 14:11 | DVHPNRES ---
Progress Note Date Seen: Sep 12, 2024 Resident Creating Document: RAFAEL ARTHUR RESIDENT Medical Necessity Reason Pt with a Central, PICC or Fol: No Subjective Review of Systems Jeff Sully Efrain Thomson is a 59-year-old male who was transferred from [facility] to the ED with presented diagnosis of NSTEMI. Patient seen and examined at the bedside. Patient still reports of severe nausea and few episodes of vomiting. Unable to tolerate orally. Cardiology advised to continue IV Integrilin until patient can tolerate p.o. medication. Ordered CT abdominal pelvis. Objective vital signs Vital Sign Date Time Temp Pulse Resp B/P (MAP) Pulse Ox O2 Delivery O2 Flow Rate FiO2 09/12/24 10:19 128/83 09/12/24 10:00 96 Room Air 09/12/24 10:00 0 21 09/12/24 09:03 90 09/12/24 09:00 98.2 20 98.2 Total Intake and Output 09/11/24 09/11/24 09/12/24 15:00 23:00 07:00 Intake Total 330 ml 280 ml 1503 ml Output Total 0 ml Balance 330 ml 280 ml 1503 ml medications Current Medications Medications Dose Ordered Sig/Severo Route Start Time Stop Time Status Last Admin Dose Admin Ondansetron HCl 4 mg Q4HP PRN IV 09/10/24 02:30 09/12/24 10:19 4 MG Acetaminophen 650 mg Q6HP PRN PO 09/10/24 02:30 09/10/24 18:17 650 MG Morphine Sulfate 2 mg Q4HPRN PRN IV 09/10/24 02:30 09/10/24 21:48 2 MG Nitroglycerin 0.4 mg Q5MINP PRN SL 09/10/24 02:30 Morphine Sulfate 2 mg Q30M PRN IV 09/10/24 02:30 Aspirin 81 mg DAILY PO 09/10/24 10:00 09/12/24 09:03 81 MG Pantoprazole Sodium 40 mg DAILY IV 09/10/24 10:00 09/12/24 09:01 40 MG Albuterol 2.5 mg Q6HWA PRN NEB 09/10/24 05:15 09/11/24 19:38 2.5 MG Ipratropium [place] 0.5 mg Q6HWA NEB 09/10/24 06:00 09/12/24 06:19 0.5 MG Metoprolol Succinate 25 mg DAILY PO 09/10/24 10:00 09/12/24 09:03 25 MG Hydralazine HCl 10 mg Q6HP PRN IV 09/10/24 09:15 09/11/24 11:22 10 MG Clopidogrel Bisulfate 75 mg DAILY PO 09/11/24 10:00 09/12/24 09:03 75 MG Citalopram Hydrobromide 20 mg DAILY PO 09/11/24 10:00 09/12/24 09:02 20 MG Tamsulosin HCl 0.4 mg DAILY PO 09/11/24 10:00 09/12/24 09:02 0.4 MG Atorvastatin Calcium 80 mg DAILY PO 09/11/24 10:00 09/12/24 09:01 80 MG Losartan Potassium 100 mg DAILY PO 09/11/24 10:00 09/12/24 09:02 100 MG Amlodipine Besylate 5 mg DAILY PO 09/11/24 10:00 09/12/24 10:19 5 MG Metoclopramide HCl 5 mg Q6HPRN PRN IV 09/11/24 10:45 09/12/24 07:41 5 MG Sodium Chloride 1,000 ml @ 75 mls/hr [id number] IV 09/11/24 11:15 09/12/24 00:57 75 MLS/HR Lorazepam 1 mg Q8HP PRN IV 09/12/24 05:45 09/12/24 06:16 1 MG Haloperidol Lactate 2.5 mg Q8HP PRN IV 09/12/24 14:00 UNV Examination Pt is lying on bed General Appearance: Alert, Oriented X3, Cooperative, Not in acute distress HEENT: Atraumatic, Mucous membranes moist/pink Respiratory: Clear to auscultation, Normal air movement, No added sounds Cardiovascular: Regular rate, Normal S1, Normal S2, No murmurs Abdominal: Active bowel sounds, Soft, no distention, no tenderness Extremities: No edema, Normal pulses, No tenderness/swelling Skin: No Significant rash, except past surgical scars Neuro: Normal speech, sensorimotor deficits none Psych/Mental Status: Mental status NL, Mood NL laboratory and microbiology Laboratory Tests 09/12/24 05:40 Test 09/12/24 05:40 Range/Units Serum Glucose 160 H 74-106 mg/dL Labs and/or images reviewed: Labs reviewed by me, Image(s) reviewed by me Problem List/Assessment/Plan Problem List/Assessment/Plan # NSTEMI type I - elevated troponins x3 - EKG changes which showed depression to inferior leads with associated Q-waves as well as reciprocal changes to lateral wall - clinical documentation consultant evaluated the patient and performed PCI to the mid obtuse marginal branch using single drug-eluting stent - initiated DAPT with aspirin and Plavix along with high-dose statin at risk factor modification - echocardiogram LVEF 55%, grade 1 diastolic dysfunction, RVSP 34 mmHg - Cardiology advised to continue IV Integrilin until patient can tolerate p.o. medication. Ordered CT abdominal pelvis. # Probable cannabinoid hyperemesis - Ordered abdominal ultrasound: Unremarkable - Currently on IV antiplatelet medication - ordered CT abdominal pelvis, pending - currently giving Haldol IV # Hypertension - continuously monitored - resumed home meds, due to vomiting also indicated hydralazine IV # Hypokalemia - Repleting - Monitor lab # Dyslipidemia - counseled lifestyle modifications including diet and exercise - started on high-dose statins # COPD not in exacerbation - on breathing treatments #Cannabinoid abuse disorder # Vaping disorder - counseled regarding cessation DAPT Protonix Cardiac diet Reconciled home meds Case management discussed with Dr. Miranda, patient and nurse Plan discussed with: Patient, Other (Nurse) My Orders My Orders Orders - RAFAEL ARTHUR RESIDENT Procedure Category Date Status Time Ct Ab Pel Wo Con-No CT 09/12/24 Logged Oral Or Iv 13:18 Haloperidol Lactate PHA 09/12/24 Logged Injection (Haldol) 14:00 Addendum Addendum Addendum I was physically present for the lara portions of the service provided to patient by THE RESIDENT. I have reviewed the documentation, discussed the case with resident and agree with the resident's documentation except as noted. Also the patient's clinical case was discussed with the patient's nurse. This medical document was created using an electronic medical record system with computerized dictation system. Although this document has been carefully reviewed, there might still be some phonetic and typographical errors. These areas are purely typographical due to imperfections of the software programs, and do not reflect any compromise in the patient's medical care. Late signature. Date of Service: Sep 12, 2024 Billing Provider: JHONATAN MIRANDA MD Common Visit Codes: [id number] INP/OBS CARE(HIGH) RAFAEL ARTHUR RESIDENT Sep 12, 2024 14:11 JHONATAN MIRANDA MD Sep 13, 2024 05:00
--- NOTE | 2024-09-12 17:05 | DVH ---
Exam: CT CT AB PEL WO CON-NO ORAL OR IV History: abd pain Comparison Study: Right upper quadrant ultrasound 09/11/2024 Technique: Multidetector spiral CT of the abdomen was performed from lung bases to pubic symphysis. Imaging was performed without IV contrast. Axial, coronal and sagittal multiplanar reformats were ob tained from the axial data set by the technologist. Radiation Dose : 1. Abdomen/Pelvis: CTDIvol 10.0 mGy, DLP 578.35 mGy*cm. Findings: Evaluation of solid organs is limited due to lack of intravenous contrast use. Lung Bases: No acute or significant lung base finding. Normal heart size. No pleural or pericardial effusion. Liver: The liver is normal in size. There is a 9 mm hypodense focus in the left hepatic lobe which i s too small to characterize. Gallbladder and Biliary Tree: Homogeneously increased density of contents within the gallbladder. No evidence of gallbladder distention, calcified stones, or pericholecystic fluid / inflammation. The c ommon bile duct is nondilated. Spleen: Unremarkable Pancreas: The pancreas is grossly normal in appearance. Adrenal Glands: Unremarkable Kidneys: There is mfmg-mxctxec-twpa-right perinephric stranding. A couple of punctate nonobstructing renal calculi are seen. Probable left-sided peripelvic renal cysts. No hydronephrosis. Bladder: Grossly unremarkable for degree of distention. Bowel: Diffuse wall thickening in the stomach which is poorly distended. Small bowel and colon are no rmal in caliber and distribution. The appendix is not visualized; however, no secondary findings of acute appendicitis identified. Colonic diverticulosis without evidence of diverticulitis. Ascites: Absent Lymphadenopathy: No mesenteric, retroperitoneal or periportal lymphadenopathy. Abdominal Wall and Mesentery: Postsurgical changes associated with the anterior abdominal wall. Tiny fat containing umbilical hernia. Vasculature: The visualized abdominal aorta is normal in size and caliber. Evaluation of abdominal a nd pelvic vessels is limited due to lack of intravenous contrast. Pelvic Organs: Unremarkable Musculoskeletal: No aggressive focal bony lesions, acute fractures or dislocation. Transitional lumbo sacral anatomy with sacralization of L5 on the right. Degenerative changes of the sacroiliac joints. Postsurgical changes of the anterior bony pelvis. Trace retrolisthesis L2 on L3. IMPRESSION: 1. Punctate nephrolithiasis. No evidence of hydronephrosis. 2. Jtgn-tsxyhmi-bwni-right perinephric stranding. This is nonspecific but underlying pyelonephritis i s not excluded. Recommend clinical/ laboratory correlation. 3. Small 1.5 cm hypodensity at the left inferior renal pole attenuates slightly higher than simple f luid. Recommend nonemergent renal ultrasound. 4. Colonic diverticulosis without evidence of diverticulitis. 5. Subcentimeter hypodensity in the left hepatic lobe is too small to characterize. 6. Hyperdense gallbladder contents is likely insignificant given normal right upper quadrant ultraso und 09/11/2024. 7. Gastric wall thickening may be due to poor distention although underlying gastritis is not exclude d. Radiation optimization: All CT scans at this facility use at least one of these dose optimization bandar hniques: automated exposure control mA and/or kV adjustment per patient size (includes targeted exam s where dose is matched to clinical indication) or iterative reconstruction.
[2024-09-12] MEDS: HALOPERIDOL LACTATE 5 MG/ML INJ VIAL IM PRN (17:41)
[2024-09-12] MEDS ORDERED: POTASSIUM CHLORIDE 60 MEQ, LIDOCAINE 1% (LOCAL ANESTH.) 6 ML in SODIUM CHL 0.9% 500 ML IV ONE (20:30)
[2024-09-12] MEDS: POTASSIUM CHL 20MEQ/100ML 100 ML IV ONE (20:51)
[2024-09-13] VITALS (8 sets, daily range): BP systolic 97–161; BP diastolic 59–106; PULSE 86–99; RESP 15–17; TEMP 98–98.6; O2SAT 92–99
[2024-09-13 06:33] LABS: Alanine Aminotransferase 26 U/L (7-40); Alkaline Phosphatase 69 U/L (46-116); Anion Gap 8 (5-15); Blood Urea Nitrogen 14 mg/dL (9-23); Calcium 9.2 mg/dL (8.7-10.4); Carbon Dioxide 24 mmol/L (20-31); Chloride 106 mmol/L (98-107); Sodium 138 mmol/L (136-145)
[2024-09-13 06:34] LABS: Albumin 3.7 g/dL (3.2-4.8); Bilirubin, Total 1.2 mg/dL (0.2-1.0); Total Protein 5.9 g/dL (5.7-8.2)
[2024-09-13 06:45] LABS: Aspartate Aminotransferase 41 U/L (13-40); Glucose 120 mg/dL (74-106); Potassium 3.4 mmol/L (3.5-5.1)
[2024-09-13] MEDS: MAALOX PLUS or MAALOX 30 ML PO ONE (07:58)
[2024-09-13] MEDS: POTASSIUM CHL 20MEQ/100ML 100 ML IV ONE (08:35)
[2024-09-13] MEDS ORDERED: PROP120C42 PO (10:04)
--- NOTE | 2024-09-13 14:40 | DVHDSRES ---
Discharge Summary Date of Admission Resident Creating Document: RAFAEL ARTHUR RESIDENT Sep 10, 2024 at 02:21 Date of Discharge: Sep 13, 2024 Admitting Diagnosis Chest pain Labs/Diagnostic Data: Laboratory Results Test 09/13/24 05:23 09/12/24 06:34 09/12/24 05:40 09/12/24 05:32 Sodium Level 138 mmol/L (136-145) Potassium Level 3.4 mmol/L (3.5-5.1) Chloride Level 106 mmol/L (98-107) Carbon Dioxide Level 24 mmol/L (20-31) Anion Gap 8 (5-15) Blood Urea Nitrogen 14 mg/dL (9-23) Creatinine 1.08 mg/dL (0.700-1.30) Glomerular Filtration Rate Calc 79 mL/min (>90) BUN/Creatinine Ratio 13.0 (10.0-20.0) Serum Glucose 120 mg/dL (74-106) Calcium Level 9.2 mg/dL (8.7-10.4) Total Bilirubin 1.2 mg/dL (0.2-1.0) Aspartate Amino Transferase (AST) 41 U/L (13-40) Alanine Aminotransferase (ALT) 26 U/L (7-40) Alkaline Phosphatase 69 U/L (46-116) Total Protein 5.9 g/dL (5.7-8.2) Albumin 3.7 g/dL (3.2-4.8) SARS-CoV-2 Antigen (Rapid) Negative (NEGATIVE) White Blood Count 17.4 10^3/uL (4.4-10.8) Red Blood Count 4.85 10^6/uL (4.5-5.90) Hemoglobin 15.8 g/dL (13.5-17.5) Hematocrit 47.0 % (41.0-53.0) Mean Corpuscular Volume 97.0 fL (80.0-100.0) Mean Corpuscular Hemoglobin 32.6 pg (28.0-32.0) Mean Corpuscular Hemoglobin Concent 33.6 g/dL (32.0-36.0) Red Cell Distribution Width 13.0 % (11.8-14.3) Platelet Count 267 10^3/uL (140-450) Mean Platelet Volume 9.2 fL (6.9-10.8) Neutrophils (%) (Auto) 77.6 % (37.0-80.0) Lymphocytes (%) (Auto) 8.2 % (10.0-50.0) Monocytes (%) (Auto) 13.9 % (0.0-12.0) Eosinophils (%) (Auto) 0.1 % (0.0-7.0) Basophils (%) (Auto) 0.2 % (0.0-2.0) Neutrophils # (Auto) 13.5 10 ^3/uL (1.6-8.6) Lymphocytes # (Auto) 1.4 10 ^3/uL (0.4-5.4) Monocytes # (Auto) 2.4 10 ^3/uL (0-1.3) Eosinophils # (Auto) 0 10 ^3/uL (0-0.8) Basophils # (Auto) 0 10 ^3/uL (0-0.2) Nucleated Red Blood Cells 0.0 % Phosphorus Level 1.6 mg/dL (2.4-5.1) Magnesium Level 1.9 mg/dL (1.6-2.6) Troponin I High Sensitivity 79551 ng/L (</=54) POC Glucose 208 mg/dl (70-106) Test 09/10/24 15:10 09/10/24 03:27 09/10/24 02:35 09/10/24 01:45 Prothrombin Time 11.1 sec (9.3-11.8) Prothrombin Time INR 1.05 (0.9-1.15) Activated Partial Thromboplast Time 27.3 SEC (24.5-34.5) Plasma/Serum Blood Alcohol < 3.0 mg/dL (<10) Erythrocyte Sedimentation Rate 1 mm/hr (0-20) D-Dimer, Quantitative 0.32 mg/L FEU (0.0-0.49) Hemoglobin A1c 5.9 % A1C (<5.7) C-Reactive Protein High Sensitivity 0.14 mg/dL (<1.0) B-Type Natriuretic Peptide 290.40 pg/mL (0-100) Triglycerides Level 155 mg/dL (< 150) Cholesterol Level 240 mg/dL (< 200) LDL Cholesterol 171 mg/dL (< 100) HDL Cholesterol 43 mg/dL (40-59) Thyroid Stimulating Hormone (TSH) 0.77 uIU/mL (0.55-4.78) Urine Opiates Screen Neg (NEGATIVE) Urine Fentanyl Screen Neg (NEGATIVE) Urine Barbiturates Screen Neg (NEGATIVE) Urine Phencyclidine Screen Neg (NEGATIVE) Urine Amphetamines Screen Neg (NEGATIVE) Urine Benzodiazepines Screen Neg (NEGATIVE) Urine Cocaine Screen Neg (NEGATIVE) Urine Cannabinoids Screen Pos (NEGATIVE) Urine Color Light-yellow (Yellow) Urine Clarity Clear (Clear) Urine pH 7.0 (5.0-9.0) Urine Specific [place] 1.009 (1.001-1.035) Urine Protein Negative (Negative) Urine Ketones Trace (Negative) Urine Blood Trace /uL (Negative) Urine Nitrite Negative (Negative) Urine Bilirubin Negative (Negative) Urine Urobilinogen Normal mg/dL (Negative) Urine Leukocyte Esterase Negative /uL (Negative) Urine RBC 1 /hpf (0 - 3) Urine WBC <1 /hpf (0 - 3) Urine Squamous Epithelial Cells None seen /hpf (<5) Urine Bacteria None seen /hpf (None Seen) Urine Glucose Normal mg/dL (Normal) Other Laboratory Tests 09/13/24 05:23 09/12/24 05:40 Brief Hx & Hospital Course: KEANU TOMPKINS is a 59-year-old male with a PMH of HTN, COPD, asthma, BPH, nephrolithiasis, anxiety transferred from [facility] for the evaluation of elevated troponin levels. Patient reported he initially presented to the [facility] with the chief complaints of epigastric pain, and chest pain substernal, pressure-like, radiating to the left upper extremity, and associated with nausea, diarrhea and vomiting for two days. Per patient, reported he initially got these symptoms on Friday and that it pain management and again due to lack of improvement in his symptoms he again visited hospital, did lab test which showed elevated troponins, advised him for higher level of care. On my assessment patient denies fever, diaphoresis, shortness of breath, abdominal pain, headache, fever, chills and other acute associated symptoms. Patient required hospital admission for further evaluation and management of chest pain. Due to elevated troponins x3 and EKG changes which showed depression to inferior leads with associated Q-waves as well as reciprocal changes to lateral wall so,consultants intern evaluated the patient and took him to the solder making laborer, on September 10, 2024 performed left heart catheterization with primary angioplasty with MELISSA in margin branch, initiated DAPT and high dose statins . Patient tolerated the procedure well. Patient advised to undergo complete smoking cessation and risk factor modification. patient was monitored. Due to continuous nausea and vomiting patient was closely monitored for electrolytes and given IVF and medications through IV, CT abdominal pelvis or ultrasound showed no acute changes. CT abdominal pelvis showed mild nephrolithiasis, colonic diverticulosis which should be followed up on outpatient.. Patient was advised about cessation of cannabinoid abuse and smoking cessation for 17 minutes. Patient condition was improved, hemodynamically stable and in condition to be discharged home with optimal medical treatment. Discharge plan discussed with the patient and family and agreed to the plan. Patient was advised about healthy lifestyle modifications including diet, exercise and to quit cannabinoids and smoking. Patient was advised to follow up with PCP and Cardiology after the discharge. Pt is lying on bed General Appearance: Alert, Oriented X3, Cooperative, Not in acute distress HEENT: Atraumatic, Mucous membranes moist/pink Respiratory: Clear to auscultation, Normal air movement, No added sounds Cardiovascular: Regular rate, Normal S1, Normal S2, No murmurs Abdominal: Active bowel sounds, Soft, no distention, no tenderness Extremities: No edema, Normal pulses, No tenderness/swelling Skin: No Significant rash, except past surgical scars Neuro: Normal speech, sensorimotor deficits none Psych/Mental Status: Mental status NL, Mood NL Nurse was there as sharperone during examination Consults/Reason for consult Consulted cardiology due to NSTEMI Operations or Procedures Report Details Date: 09/10/24 Preop Diagnosis: Non ST-elevation myocardial infarction. Postop Diagnosis: Non ST-elevation myocardial infarction secondary to subtotal occlusion of 1st obtuse marginal tight stenosis and 99%. Lesion was fixed with single drug-eluting stent it was3 x 18 [place] MELISSA with excellent final result. Surgeon: Moraima Camacho MD Anesthesiologist: Conscious sedation using25 mcg of fentanyl as well as a mg IV midazolam. These were given under the direct supervision of the primary distribution supervisor myself in the presence of the attending nurses. Patient was monitored for total of35 minutes without obvious complication. Anesthesia: Local Name of Procedure Performed 1. Left heart catheterization with left ventricular end-diastolic pressure measurement. 2. Selective right and left coronary angiography utilizing right transradial approach. 3. Primary PCI to culprit mid obtuse marginal branch stenosis and 99%. Treated with single drug-eluting stent 3 x 20 [place] MELISSA. 4. Conscious sedation using25 mcg of fentanyl as well as a mg IV midazolam. Procedure Details Procedure Details: Procedure note and vascular access: After informed consent was obtained, risks, benefits, complications, and alternatives were discussed in detail with the patient who agrees to have the procedure done. At the beginning of the procedure, the right wrist in the right coronary artery were prepped and draped in the regular sterile fashion. Patient was brought into the solder making laborer where he received conscious sedation 25 mcg of fentanyl as well as a mg of midazolam. He then received a total of2 cc of 1% xylocaine locally to the right wrist area before a six Indian sheath was placed using modified Seldinger technique. A cocktail of 2.5 mg of verapamil as well as 100 mcg of nitroglycerin were given intra-arterial to prevent vasospasm. Given that the patient was on IV heparin we continue IV heparin during the procedure. An ACT was done multiple times to check blood clotting time. Findings were as follows: 1. Left heart catheterization with left ventricular end-diastolic pressure measurement: With the help of a tiger five Indian catheter as well as a J-tip wire we were able to cross the aortic valve and measured left ventricular end-diastolic pressure which was marginally elevated at 13 mm of mercury. There was no gradient across the aortic valve on the pullback. 2. Selective right and left coronary angiography utilizing right transradial approach: 1. The right coronary artery comes off the right coronary cusp it is a large dominant system it has mild irregularity but no discrete stenosis was noted. It bifurcates distally into large posterior descending artery as well as large posterolateral branches without significant atherosclerotic plaquing. 2. The left main comes off the left coronary cusp it is a large widely patent vessel it divides up into an LAD and left circumflex vessel. 3. The left anterior descending artery is a large vessel with two large diagonal branches. Has mild irregularity at 30% in the proximal to mid segment. No significant stenosis was noted. The LAD has transapical course. 4. The left circumflex vessel is medium-sized vessel it gives rise to large obtuse marginal branch, in the mid segment of the 1st obtuse marginal branches that is tight subtotal occlusion at 99%. It is the culprit vessel the patient's presentation. 3. Primary angioplasty with single drug-eluting stent to the mid obtuse marginal branch: [place] five Indian catheterization diagnostic catheter was exchanged for an XB 3.5 guiding catheter. A C-arm blue wire was used to traverse the lesion. After crossing of the lesion it was pre-dilated using a two 0 x 12 balloon and then was stented using3 x 20 [place] MELISSA with excellent final result all the way up to a 14 atmospheric pressure. The patient has ANNI two flow at the beginning of the case and a indent up with ANNI three flow after stent was placed. Antiplatelet and anticoagulation during the procedure: Patient received IV heparin with the ACT mounting to 250, the dose was adjusted for his weight is receiving 100 units/kg body weight. He also received loading dose of 300 of Plavix as with a at 162 of baby aspirin. Impression and plan: 1. High-risk non ST-elevation myocardial infarction with dynamic EKG changes and high troponin secondary to a culprit mid obtuse marginal branch stenosis. 2. Successful PCI to the mid obtuse marginal branch using single drug-eluting stent. 3. Patient would need to be on dual antiplatelet therapy for minimum of12 months. And thereafter he would need a single antiplatelet indefinitely. He would need to undergo complete smoking cessation and risk factor modification. 4. Patient would need to be on high-dose statin to achieve LDL target less than 50 mg/dL. He would need an echocardiogram to assess left ventricular systolic function and proceed with goal-directed therapy as indicated. Multiple real-time sonographic images were obtained of the right upper quadrant. 1. Unremarkable right upper quadrant sonogram. CT CT AB PEL WO CON-NO ORAL OR IV IMPRESSION: 1. Punctate nephrolithiasis. No evidence of hydronephrosis. 2. Wxek-xgnubzv-odoi-right perinephric stranding. This is nonspecific but underlying pyelonephritis is not excluded. Recommend clinical/ laboratory correlation. 3. Small 1.5 cm hypodensity at the left inferior renal pole attenuates slightly higher than simple fluid. Recommend nonemergent renal ultrasound. 4. Colonic diverticulosis without evidence of diverticulitis. 5. Subcentimeter hypodensity in the left hepatic lobe is too small to characterize. 6. Hyperdense gallbladder contents is likely insignificant given normal right upper quadrant ultrasound 09/11/2024. 7. Gastric wall thickening may be due to poor distention although underlying gastritis is not excluded. Condition at Discharge: Stable Final Diagnosis/Problems List # NSTEMI type I # Probable cannabinoid hyperemesis # Hypertension # Hypokalemia # Dyslipidemia # COPD not in exacerbation #Cannabinoid abuse disorder # Vaping disorder # B/L Nephrolithiasis # diverticulosis Discharge Disposition: Home Discharge Instruct/Medications Diet: Consistent carbohydrate, Cardiac 2g Na,low cholest Activity: No Restrictions, As Tolerated Follow Up/Referral: pcp and cardio Medications: per emr Discharge Statement: "Patient was advised to return to the ER or call 911 if any headaches, dizziness, shortness of breath, chest pain, abdominal pain, bleeding, fevers, or worsening of medical condition. Patient was counseled about treatment plan, medications, possible side effects, patientverbalized understanding. All questions were answered to the best of my ability. This discharge took greater then 30 minutes in planning, reviewing documentation, counseling the patient, and discussing with other team members." ASSESSMENT ASSESSMENT Assessment # NSTEMI type I Date of Service: Sep 13, 2024 Billing Provider: JOSE JERONIMO MD Common Visit Codes: 33131-STH/OBS DISCH DAY >30min RAFAEL ARTHUR RESIDENT Sep 13, 2024 14:40 JOSE JERONIMO MD Sep 13, 2024 19:56
[2024-09-13] MEDS ORDERED: AML5T PO ×2 (15:13→15:45)
[2024-09-13] MEDS ORDERED: ZOFR4T PO (15:13)
[2024-09-13] MEDS ORDERED: CLOP75TA70 PO ×2 (15:13→15:45)
[2024-09-13] MEDS ORDERED: ASPI-325 PO ×2 (15:13→15:45)
[2024-09-13] MEDS ORDERED: METO-6 PO (15:13)
[2024-09-13] MEDS ORDERED: ATOR80TA PO ×2 (15:13→15:45)
[2024-09-13] MEDS ORDERED: METO25TA36 PO (15:45)
[2024-09-13] MEDS ORDERED: LOSA-535 PO (15:47)
--- NOTE | 2024-09-13 16:36 | DVHPN2 ---
Consult Progress Note Date Seen: Sep 13, 2024 Subjective Review of Systems: CVS:Normal, RESPIRATORY:Normal, NEURO:Normal Other Systems: Denies any further N/V Objective vital signs Vital Sign Date Time Temp Pulse Resp B/P (MAP) Pulse Ox O2 Delivery O2 Flow Rate FiO2 09/13/24 12:55 98.0 86 16 146/88 (107) 92 98.0 09/13/24 10:00 Room Air* 0 21 Total Intake and Output 09/12/24 09/12/24 09/13/24 15:00 23:00 07:00 Intake Total 0 ml 1840 ml 400 ml Balance 0 ml 1840 ml 400 ml medications Current Medications Medications Dose Ordered Sig/Severo Route Start Time Stop Time Status Last Admin Dose Admin Ondansetron HCl 4 mg Q4HP PRN IV 09/10/24 02:30 09/13/24 04:20 4 MG Acetaminophen 650 mg Q6HP PRN PO 09/10/24 02:30 09/10/24 18:17 650 MG Morphine Sulfate 2 mg Q4HPRN PRN IV 09/10/24 02:30 09/13/24 00:15 2 MG Nitroglycerin 0.4 mg Q5MINP PRN SL 09/10/24 02:30 Morphine Sulfate 2 mg Q30M PRN IV 09/10/24 02:30 Aspirin 81 mg DAILY PO 09/10/24 10:00 09/13/24 10:02 81 MG Pantoprazole Sodium 40 mg DAILY IV 09/10/24 10:00 09/13/24 10:02 40 MG Albuterol 2.5 mg Q6HWA PRN NEB 09/10/24 05:15 09/12/24 19:06 2.5 MG Metoprolol Succinate 25 mg DAILY PO 09/10/24 10:00 09/13/24 10:03 25 MG Hydralazine HCl 10 mg Q6HP PRN IV 09/10/24 09:15 09/13/24 08:37 10 MG Clopidogrel Bisulfate 75 mg DAILY PO 09/11/24 10:00 09/13/24 10:02 75 MG Citalopram Hydrobromide 20 mg DAILY PO 09/11/24 10:00 09/13/24 10:01 20 MG Tamsulosin HCl 0.4 mg DAILY PO 09/11/24 10:00 09/13/24 10:02 0.4 MG Atorvastatin Calcium 80 mg DAILY PO 09/11/24 10:00 09/13/24 10:02 80 MG Losartan Potassium 100 mg DAILY PO 09/11/24 10:00 09/13/24 10:01 100 MG Amlodipine Besylate 5 mg DAILY PO 09/11/24 10:00 09/13/24 10:00 5 MG Metoclopramide HCl 5 mg Q6HPRN PRN IV 09/11/24 10:45 09/12/24 07:41 5 MG Sodium Chloride 1,000 ml @ 75 mls/hr [id number] IV 09/11/24 11:15 09/13/24 08:43 75 MLS/HR Lorazepam 1 mg Q8HP PRN IV 09/12/24 05:45 09/13/24 04:27 1 MG Haloperidol Lactate 2.5 mg Q8HP PRN IM 09/12/24 16:00 09/13/24 10:04 2.5 MG Ipratropium [place] 0.5 mg Q6HWA PRN NEB 09/13/24 18:00 Examination: LUNGS:Normal, CVS:Normal, NEURO:Normal laboratory and microbiology Laboratory Tests 09/13/24 05:23 09/12/24 05:40 Test 09/13/24 05:23 Range/Units Serum Glucose 120 H 74-106 mg/dL Problem List/Assessment/Plan Problem List/Assessment/Plan Evolved inferior wall myocardial infarction Pertinent family history for CV disease Hypertensive urgency Dyslipidemia, newly diagnosed COPD with hx of tobacco use and 60 pack-years Elevatetd LFTs, resolved Cannabinoid hyperemesis Plan/Recommendation (Dr. Jeffries) The patient is status post coronary angiogram showing 99% lesion to left circumflex, OM1 status post MELISSA x1. Continue aspirin, Plavix, high-intensity statin, and beta-mercedes. Transthoracic echocardiogram revealed a normal LVEF of 55% with no valvular structural abnormalities noted on echo. Follow-up with Dr. Jeffries on 09/20/24 at 1515. There is no further cardiac work-up indicated at this time. Kindly call if in need of further cardiac work-up. Thank you for allowing us to care for this patient. This medical document was created using an electronic medical record system with voice recognition software and computerized dictation system. Although this document has been carefully reviewed, there might still be some phonetic and typographical errors. Occasional wrong-word or ``sound-alike substitutions may have occurred due to the inherent limitations of voice recognition software. These areas are purely typographical due to imperfections of the software programs and do not reflect any compromise in the patient's medical care. Please read the chart carefully and recognize, using context, where these substitutions have occurred. Plan discussed with: Patient, Spouse, Other Date of Service: Sep 13, 2024 Billing Provider: KEITH JEFFRIES MD Cardiology Common Codes: [id number] INP/OBS CARE(Mod) YANIRA TURK [facility] Sep 13, 2024 16:36
[2024-09-13] MEDS ORDERED: IPRATROPIUM BROM 0.5 MG/2.5ML INH SOL NEB PRN (18:00)
--- NOTE | 2024-09-14 09:41 | ECG ---
[facility] Test Date: 2024-09-10 Test Time: 00:38:42 Pat Name: KEANU DUARTE SYLVESTERKIRSTEN Department: er Room: 0240T A Gender: M Strategic Intelligence Officer: briana : 1965 Requested By: ROGERS CARPIO Order Number: [id number] Reading MD: Measurements Intervals [place] Rate: 59 P: 50 MT: 146 QRS: 4 QRSD: 99 T: -31 QT: 440 QTc: 436 Interpretive Statements Sinus rhythm Inferior infarct, age indeterminate Lateral leads are also involved Please click the below link to view image of tracing.
[2024-09-14] MEDS ORDERED: ZOFR4T PO (10:11)
== END 2024-09-13 18:09 | disposition home or self-care (01) | DRG 321 ==
LOC: EDBD 00:51 → ER 00:51 → TELE 02:21 → TELE-EAST 13:42
PROVIDERS: ADMIT Internal Medicine Geriatric Medicine; ATTEND Internal Medicine Geriatric Medicine
PROC: 027034Z Dilation of Coronary Artery, One Artery with Drug-eluting Intraluminal Device, Percutaneous Approach (ICD-10-PCS; principal; 2024-09-10)
PROC: 4A023N7 Measurement of Cardiac Sampling and Pressure, Left Heart, Percutaneous Approach (ICD-10-PCS; 2024-09-10)
PROC: B211YZZ Fluoroscopy of Multiple Coronary Arteries using Other Contrast (ICD-10-PCS; 2024-09-10)
DX: I21.19 ST elevation (STEMI) myocardial infarction involving other coronary artery of inferior wall (principal); J96.01 Acute respiratory failure with hypoxia; J44.1 Chronic obstructive pulmonary disease with (acute) exacerbation; E78.5 Hyperlipidemia, unspecified; Z20.822 Contact with and (suspected) exposure to COVID-19; F41.9 Anxiety disorder, unspecified; N40.0 Benign prostatic hyperplasia without lower urinary tract symptoms; E87.6 Hypokalemia; I16.0 Hypertensive urgency; K57.30 Diverticulosis of large intestine without perforation or abscess without bleeding; Z88.0 Allergy status to penicillin; Z87.891 Personal history of nicotine dependence; Z82.49 Family history of ischemic heart disease and other diseases of the circulatory system; Z87.442 Personal history of urinary calculi; Z90.49 Acquired absence of other specified parts of digestive tract
CPT/HCPCS: 36415; 71045; 74176; 76705; 80048; 80053; 80061; 80307; 80320; 81001; 82962; 83036; 83735; 83880; 84100; 84132; 84443; 84484; 85025; 85379; 85610; 85652; 85730; 86141; 87426; 92941; 93005; 93306; 93458; 94640; 96374; 96375; 99152; 99291; G0378; J2003; J2250; J2405; J2470; J3480; J7060; Q9967